=== PATIENT | female | born 1990 | race Caucasian/White ===

== ENCOUNTER → 2017-05-28 | Outpatient (CLI) | payer OTHER ==
[~2017-05-28] MED LIST: AMPH30TA2 PO; PRENTAB26 PO
== END | disposition home or self-care (01) ==
LOC: C.LAB 21:14
DX: Z02.83 Encounter for blood-alcohol and blood-drug test (principal)

== ENCOUNTER 2017-07-07 08:50 | Inpatient (IN) | payer OTHER ==
[~2017-07-07] VITALS: Ht 165.1 cm; Wt 77.4 kg
[~2017-07-07 08:50] MED LIST changes: -AMPH30TA2 PO
[2017-07-07] MEDS ORDERED: AMPH30TA2 PO ×2 (09:25)
[2017-07-07] MEDS ORDERED: ONDANSETRON INJ 2 MG/ML 2 ML VIAL IV STA (09:48)
[2017-07-07] MEDS ORDERED: SODIUM CHLORIDE 0.9% 1000ML 1,000 ML IV STA (09:48)
[2017-07-07] MEDS ORDERED: MoRPHine SULFATE 4 MG/ML 1 ML CARP\\VIAL IV STA (09:48)
[2017-07-07] MEDS ORDERED: OPTIRAY 320 IV PRN (10:00)
[2017-07-07 10:20] LABS: BASO % 0.1 %; BASO ABS # 0.02 K/uL (0-0.2); COMPLETE YES; EOS % 1.3 %; HEMATOCRIT 42.1 % (37-47); IG% 0.2 %; LYMPH % 10.7 %; LYMPH ABS # 1.52 K/uL (1.2-3.4); MEAN CELL VOLUME 97.2 fL (80-100); MEAN CORPUSCULAR HEMOGLOBIN 33.7 pg (25-34); MEAN CORPUSCULAR HGB CONC 34.7 g/dl (32-36); MEAN PLATELET VOLUME 11.5 fL (7.4-10.4); MONO % 11.9 %; NEUT % 75.8 %; PLATELET COUNT 224 K/uL (130-400); RED BLOOD COUNT 4.33 M/uL (4.2-5.4)
[2017-07-07 10:36] LABS: URINE APPEARANCE CLEAR (CLEAR); URINE BILIRUBIN NEG (NEG); URINE COLOR YELLOW; URINE NITRITE NEG (NEG); URINE PH 6.5 (4.5-7.5); URINE SPECIFIC GRAVITY 1.015 (1.000-1.030); UROBILINOGEN NEG (NEG)
[2017-07-07 10:37] LABS: MANUAL MICROSCOPIC REQUIRED? YES; REVIEW REQ? NO
[2017-07-07 10:44] LABS: BUN/CREATININE RATIO 12.1 (10-20); CALCIUM 9.4 mg/dl (8.5-10.1); CREATININE 0.75 mg/dl (0.60-1.20); POTASSIUM 3.4 mmol/L (3.5-5.1)
[2017-07-07 10:50] LABS: URINE BACTERIA NEG (NEG); URINE GRANULAR CAST 0-3 /lpf (0); URINE RBC 0-4 /hpf (0-4)
[2017-07-07 10:51] LABS: ALB/GLOB RATIO 0.9 (0.9-2)
--- NOTE | 2017-07-07 11:26 | DIAGNOSTIC IMAGING REPORT ---
CT SCAN OF THE ABDOMEN AND PELVIS WITH IV CONTRAST CLINICAL HISTORY: Mid abdominal pain. COMPARISON STUDY: Abdominal CT dated 09/03/2014. TECHNIQUE: Following the IV administration of 94 cc of Optiray 320, CT scan of the abdomen and pelvis is performed from the lung bases to the proximal femora. Images are reviewed in the axial, sagittal, and coronal planes. IV contrast was administered without complication. A dose lowering technique was utilized adhering to the principles of ALARA. CT DOSE: 442.42 mGy.cm FINDINGS: Lung bases: The heart is normal in size and without pericardial effusion. The lung bases are clear. Liver: The contrast-enhanced liver is enlarged, measuring 19.7 cm in length. The liver demonstrates diffusely diminished attenuation consistent with severe hepatic steatosis. Fatty sparing is noted adjacent to gallbladder fossa. There is no intrahepatic biliary ductal dilatation. The hepatic veins and portal veins are patent. Gallbladder: Unremarkable. Spleen: Normal in size and attenuation. Pancreas: Unremarkable. Adrenal glands: Unremarkable. Kidneys: The contrast enhanced kidneys are normal in size and without hydronephrosis. The kidneys enhance symmetrically. A subcentimeter cortical hypodensity in the right lower pole likely represents a cyst but is too small for definitive characterization. Abdominal vasculature: The abdominal aorta is normal in course and caliber. Bowel: The small bowel and colon are normal in course and caliber. The appendix is distended measuring 13 mm in diameter. The appendiceal wall is thickened and hyperemic and there is periappendiceal inflammatory stranding. Findings are consistent with acute appendicitis. Focal discontinuity of the appendiceal wall is suggested on image #329. Perforation is not excluded. Phlegmonous change is identified with no organized fluid collection seen to suggest abscess. Peritoneum: There is no intraperitoneal free air or abdominal ascites. There is a small fat-containing umbilical hernia. Lymphadenopathy: None. Pelvic viscera: The bladder, uterus, and adnexa are normal as visualized. There are small ovarian follicles. A small volume of free fluid is seen in the cul-de-sac. Skeletal structures: No lytic or blastic lesions are seen. IMPRESSION: 1. Findings are consistent with acute appendicitis with suspected perforation. No intraperitoneal free air is seen. Phlegmonous change is identified in the right lower quadrant with no organized fluid collection seen to indicate abscess. 2. Hepatomegaly and severe hepatic steatosis. 3. A small volume of free fluid in the cul-de-sac is nonspecific and may be within physiologic limits. Electronically signed by: Goyo Clay M.D. 07/07/2017 11:25 AM Dictated Date/Time: 07/07/2017 11:20 AM
[2017-07-07] MEDS ORDERED: PIPERACILLIN/TAZOBACTAM 4.5 GM/100ML D5W IV STA (11:44)
--- NOTE | 2017-07-07 12:22 | EMERGENCY ROOM VISIT NOTE ---
History First contact with patient: 09:16 Chief Complaint: ABDOMINAL PAIN Stated Complaint: BAD STOMACH AND BACK PAIN Nursing Triage Summary: mid back pain that radiates into abdomen. urinary frequency and pain History of Present Illness Patient is a 26-year-old white female who presents to the emergency department for evaluation of abdominal pain 2 days. She describes pain in the bilateral upper abdomen, underneath her ribs that radiates down towards her hips. She states the pain has been constant for the last 2 days. It was significantly worse overnight. She reports vomiting 2 days ago at the onset of the pain, but has not had any further vomiting since. She notes some suprapubic pressure and pain with urination, but denies dysuria. She states the pain radiated through to her back on occasion. She subjectively felt feverish and had the chills. She does admit to anorexia. She has been taking ibuprofen and tolerating oral fluids. She states at its worse, last night she would've rated her pain "15 out of 10," presently she rates it a 9/10. She denies any changes in her bowel habits. No vaginal bleeding or discharge. Her periods are irregular, as she previously had been receiving Depo-Provera injections. Last sexual activity was 2 weeks ago. Review of Systems Review of systems as per HPI. All other systems reviewed were negative. 10 systems reviewed. Past Medical/Surgical History Medical Problems: (1) Acute appendicitis (2) Hx of section (3) Intrauterine (4) No Known Active Medical Problems (5) Normal labor (6) Previous section Electronic medical records are reviewed and summarized as above/below. See Problem List. Social History Smoking Status: Current Every Day Smoker Alcohol Use: occasionally Housing Status: lives with family Occupation Status: employed Current/Historical Medications Scheduled Amphetamine-Dextroamphetamine 30MG (Adderall 30MG), 30 MG PO QAM Amphetamine-Dextroamphetamine 30MG (Adderall 30MG), 15 MG PO QPM Physical Exam Vital Signs Date Time Temp Pulse Resp B/P (MAP) Pulse Ox O2 Delivery O2 Flow Rate FiO2 07/07/17 12:33 97 Room Air 07/07/17 11:58 99 18 115/67 97 Room Air 07/07/17 10:22 106/76 07/07/17 08:59 36.7 100 18 112/78 98 Room Air Physical Exam CONSTITUTIONAL: Patient is a pleasant, well-appearing 26-year-old white female who is awake and alert and sitting upright on the gurney in no acute distress. Vital signs are stable. She is afebrile. HEENT: Normocephalic, atraumatic. Pupils equal, round, reactive to light and accommodation. EOMs intact without nystagmus. Sclera are anicteric. Tympanic membranes intact, with normal landmarks. External canals are clear. Oral and nasopharynx are clear. Mucous membranes are moist. NECK: Supple without lymphadenopathy. No thyromegaly. No meningeal signs. Full active range of motion without discomfort. CARDIOVASCULAR: Regular rate and rhythm, with normal S1 and S2, no murmur or gallop or rub is heard. No carotid bruits auscultated. No JVD. Peripheral pulses easily palpable. RESPIRATORY: Breath sounds equal and clear to auscultation without wheezes, rales, or rhonchi heard. Full and equal chest expansion without accessory muscle use or retractions. ABDOMEN: Bowel sounds are present. Abdomen is soft, nondistended, mildly tender to percussion in the epigastric, right upper quadrant and right lower quadrant. She has tenderness to palpation with voluntary guarding in the right lower quadrant. No rigidity. No CVA tenderness. INTEGUMENTARY: No lesions or rash, normal skin turgor. LYMPH: No lymphadenopathy. Medical Decision & Procedures ER Provider Diagnostic Interpretation: CT SCAN OF THE ABDOMEN AND PELVIS WITH IV CONTRAST CLINICAL HISTORY: Mid abdominal pain. COMPARISON STUDY: Abdominal CT dated 09/03/2014. TECHNIQUE: Following the IV administration of 94 cc of Optiray 320, CT scan of the abdomen and pelvis is performed from the lung bases to the proximal femora. Images are reviewed in the axial, sagittal, and coronal planes. IV contrast was administered without complication. A dose lowering technique was utilized adhering to the principles of ALARA. CT DOSE: 442.42 mGy.cm FINDINGS: Lung bases: The heart is normal in size and without pericardial effusion. The lung bases are clear. Liver: The contrast-enhanced liver is enlarged, measuring 19.7 cm in length. The liver demonstrates diffusely diminished attenuation consistent with severe hepatic steatosis. Fatty sparing is noted adjacent to gallbladder fossa. There is no intrahepatic biliary ductal dilatation. The hepatic veins and portal veins are patent. Gallbladder: Unremarkable. Spleen: Normal in size and attenuation. Pancreas: Unremarkable. Adrenal glands: Unremarkable. Kidneys: The contrast enhanced kidneys are normal in size and without hydronephrosis. The kidneys enhance symmetrically. A subcentimeter cortical hypodensity in the right lower pole likely represents a cyst but is too small for definitive characterization. Abdominal vasculature: The abdominal aorta is normal in course and caliber. Bowel: The small bowel and colon are normal in course and caliber. The appendix is distended measuring 13 mm in diameter. The appendiceal wall is thickened and hyperemic and there is periappendiceal inflammatory stranding. Findings are consistent with acute appendicitis. Focal discontinuity of the appendiceal wall is suggested on image #329. Perforation is not excluded. Phlegmonous change is identified with no organized fluid collection seen to suggest abscess. Peritoneum: There is no intraperitoneal free air or abdominal ascites. There is a small fat-containing umbilical hernia. Lymphadenopathy: None. Pelvic viscera: The bladder, uterus, and adnexa are normal as visualized. There are small ovarian follicles. A small volume of free fluid is seen in the cul-de-sac. Skeletal structures: No lytic or blastic lesions are seen. IMPRESSION: 1. Findings are consistent with acute appendicitis with suspected perforation. No intraperitoneal free air is seen. Phlegmonous change is identified in the right lower quadrant with no organized fluid collection seen to indicate abscess. 2. Hepatomegaly and severe hepatic steatosis. 3. A small volume of free fluid in the cul-de-sac is nonspecific and may be within physiologic limits. Laboratory Results 07/07/17 10:05 Red Blood Count 4.33, Mean Corpuscular Volume 97.2, Mean Corpuscular Hemoglobin 33.7, Mean Corpuscular Hemoglobin Concent 34.7, Mean Platelet Volume 11.5, Neutrophils (%) (Auto) 75.8, Lymphocytes (%) (Auto) 10.7, Monocytes (%) (Auto) 11.9, Eosinophils (%) (Auto) 1.3, Basophils (%) (Auto) 0.1, Neutrophils # (Auto ) 10.75, Lymphocytes # (Auto) 1.52, Monocytes # (Auto) 1.69, Eosinophils # (Auto ) 0.19, Basophils # (Auto) 0.02 07/07/17 10:05 Test 07/07/17 09:45 07/07/17 10:05 Urine Color YELLOW Urine Appearance CLEAR (CLEAR) Urine pH 6.5 (4.5-7.5) Urine Specific Crosby 1.015 (1.000-1.030) Urine Protein 1+ (NEG) Urine Glucose (UA) NEG (NEG) Urine Ketones TRACE (NEG) Urine Occult Blood 2+ (NEG) Urine Nitrite NEG (NEG) Urine Bilirubin NEG (NEG) Urine Urobilinogen NEG (NEG) Urine Leukocyte Esterase SMALL (NEG) Urine WBC (Auto) /hpf (0-5) Urine RBC (Auto) /hpf (0-4) Urine Hyaline Casts (Auto) /lpf (0-5) Urine Epithelial Cells (Auto) /lpf (0-5) Urine Bacteria (Auto) (NEG) Urine RBC 0-4 /hpf (0-4) Urine WBC 1-5 /hpf (0-5) Urine Epithelial Cells >30 /lpf (0-5) Urine Renal Epithelial Cells /lpf (0-5) Urine Bacteria NEG (NEG) Urine Hyaline Casts 1-5 /lpf (0-5) Urine Granular Casts 0-3 /lpf (0) Urine Test NEG (NEG) White Blood Count 14.20 K/uL (4.8-10.8) Red Blood Count 4.33 M/uL (4.2-5.4) Hemoglobin 14.6 g/dL (12.0-16.0) Hematocrit 42.1 % (37-47) Mean Corpuscular Volume 97.2 fL (80-100) Mean Corpuscular Hemoglobin 33.7 pg (25-34) Mean Corpuscular Hemoglobin Concent 34.7 g/dl (32-36) Platelet Count 224 K/uL (130-400) Mean Platelet Volume 11.5 fL (7.4-10.4) Neutrophils (%) (Auto) 75.8 % Lymphocytes (%) (Auto) 10.7 % Monocytes (%) (Auto) 11.9 % Eosinophils (%) (Auto) 1.3 % Basophils (%) (Auto) 0.1 % Neutrophils # (Auto) 10.75 K/uL (1.4-6.5) Lymphocytes # (Auto) 1.52 K/uL (1.2-3.4) Monocytes # (Auto) 1.69 K/uL (0.11-0.59) Eosinophils # (Auto) 0.19 K/uL (0-0.5) Basophils # (Auto) 0.02 K/uL (0-0.2) RDW Standard Deviation 44.4 fL (36.4-46.3) RDW Coefficient of Variation 12.4 % (11.5-14.5) Immature Granulocyte % (Auto) 0.2 % Immature Granulocyte # (Auto) 0.03 K/uL (0.00-0.02) Anion Gap 8.0 mmol/L (3-11) Est Creatinine Clear Calc Drug Dose 115.9 ml/min Estimated GFR () 126.6 Estimated GFR (Non- 109.2 BUN/Creatinine Ratio 12.1 (10-20) Calcium Level 9.4 mg/dl (8.5-10.1) Total Bilirubin 0.9 mg/dl (0.2-1) Aspartate Amino Transf (AST/SGOT) 15 U/L (15-37) Alanine Aminotransferase (ALT/SGPT) 52 U/L (12-78) Alkaline Phosphatase 61 U/L (45-117) Total Protein 8.4 gm/dl (6.4-8.2) Albumin 3.9 gm/dl (3.4-5.0) Globulin 4.5 gm/dl (2.5-4.0) Albumin/Globulin Ratio 0.9 (0.9-2) Lipase 124 U/L (73-393) Medications Administered Medications (Trade) Dose Ordered Sig/Lavelle Route Start Time Stop Time Status Last Admin Dose Admin Morphine Sulfate (MoRPHine SULFATE INJ) 4 mg NOW STAT IV 07/07/17 09:48 07/07/17 09:50 DC 07/07/17 10:16 4 MG Ondansetron HCl (Zofran Inj) 4 mg NOW STAT IV 07/07/17 09:48 07/07/17 09:50 DC 07/07/17 10:16 4 MG Sodium Chloride 1,000 ml @ 250 mls/hr Q4H STAT IV 07/07/17 09:48 07/07/17 13:47 07/07/17 10:16 250 MLS/HR Piperacillin Sod/ Tazobactam Sod (Zosyn Iv) 4.5 gm NOW STAT IV 07/07/17 11:44 07/07/17 11:45 DC 07/07/17 12:03 4.5 GM ED Course The patient was seen and examined as above. Her old records were reviewed. IV lock was initiated and she was hydrated with normal saline solution. The case with differential, CMP and lipase were drawn. Urinalysis was performed. Urine hCG was negative. Patient was medicated with morphine 4 mg and Zofran 4 mg IV. Given her diffuse abdominal pain, particularly in the right lower quadrant, CT scan of the abdomen and pelvis with IV contrast was ordered. Laboratory studies noted a white count of 14,200, with left shift and early bandemia. H&H is normal. Electrolytes are without gross abnormality which require correction. Renal functions are normal. LFTs are not elevated. Lipase is not indicative of acute pancreatitis. Urine microscopy was essentially benign. 2+ occult blood but no RBCs and a small amount of leuk esterase, but no wbc's, no nitrates or bacteria. CT scan noted findings concerning for acute appendicitis with suspected perforation, although no abscess is appreciated. There was no intraperitoneal free air. Hepatomegaly and severe hepatic steatosis was noted. Nonspecific free fluid in the pelvic cul-de-sac. Laboratory and diagnostic imaging studies were discussed with attending physician, and reviewed with the patient at length.. General surgery was contacted, and the patient was reviewed and seen by Camila Reid PA-C. Plan will be to take her to the OR later today. She was given Zosyn 4.5 g IV in the emergency department after discussion with general surgery. Differential diagnoses entertained included UTI, pyelonephritis, renal colic, , ectopic , ovarian cyst, ovarian torsion, PID, tubo-ovarian abscess, appendicitis, bowel obstruction, perforation, acute cholecystitis, cholelithiasis, among others. The patient remained hemodynamically stable in the emergency department, and was comfortable. Medical Decision See emergency Department course. Medication Reconcilliation Current Medication List: was personally reviewed by [place] Blood Pressure Screening Patient's blood pressure: Normal blood pressure Blood pressure disposition: Did not require urgent referral Impression Primary Impression: Acute appendicitis Departure Information Dispostion Being Evaluated By Surgeon Referrals Terrell Burton M.D. (PCP) Patient Instructions My [facility]
[2017-07-07] MEDS ORDERED: MoRPHine SULFATE 2 MG/ML CARP IV PRN (12:30)
[2017-07-07] MEDS ORDERED: ONDANSETRON INJ 2 MG/ML 2 ML VIAL IV PRN ×2 (12:30→17:00)
[2017-07-07 12:33] VITALS: O2SAT 97; Ht 165.1 cm; Wt 77.4 kg
[2017-07-07 12:35] LABS: PREG INTERNAL NEGATIVE QC NEG CLEAR BACKGROUND; PREG INTERNAL POSITIVE QC POS CONTROL LINE
[2017-07-07] MEDS ORDERED: PIPERACILL/TAZOBAC IV 3.375 GM in DEXTROSE 5% 100ML 100 ML IV SCH (14:00)
[2017-07-07] MEDS ORDERED: PIPERACILL/TAZOBAC CONSULT ACTIVE PRN (14:00)
--- NOTE | 2017-07-07 14:16 | History and Physical ---
History & Physical Date & Time of Service: Jul 07, 2017 at 14:04 Chief Complaint: Bad Stomach And Back Pain Primary Care Physician: Terrell Burton M.D. History of Present Illness Source: patient Deirdre is a 26 year-old female who presented to emergency department today with complaint of abdominal pain x 2 days. States the abdominal pain began in the upper abdomen on Wednesday morning. She describes the pain as intense, more severe than labor pain. Generalized, sharp, stabbing pain that increased in severity as the days went on. States she was going to come to emergency room last evening but felt slightly better and decided not to. Has had some associated nausea and vomiting. Denies fever. Had some chills and sweats off and on with the pain. Denies of any changes in her bowel movements, diarrhea, constipation, or blood in stools. Never had this type of pain before. No significant past medical history other than some ADHD and takes Adderral at home. No other medications. She is a current every day smoker about 1/2-3/4 ppd , smoking for last 5-10 years. WBC was elevated at 14K CT of abdomen and pelvis showed dilated appendix measuring 13 mm in diameter with periappendiceal fat stranding, inflammation, and possible perforation with no free air or abscess formation. Past Medical/Surgical History Past Medical History: 1. ADHD Past Surgical History: [place] teeth section Right foot surgery Social History Smoking Status: Current Every Day Smoker Occupational Status: employed Immunizations History of Influenza Vaccine: Yes Influenza Vaccine Date: May 24, 2009 History of Tetanus Vaccine?: utd Tetanus Immunization Date: Jul 29, 2007 History of Pneumococcal: Yes Pneumococcal Date: Jul 29, 2003 History of Hepatitis B Vaccine: Yes Hepatitis Immunization Date: Jul 29, 1997 Multi-Drug Resistant Organisms History of MDRO: No Allergies Coded Allergies: Lactose (Verified Allergy, Intermediate, N/V/D, 07/07/17) Atomoxetine (Verified Adverse Reaction, Mild, IRRITABLE, 07/07/17) Home Medications Scheduled Amphetamine-Dextroamphetamine 30MG (Adderall 30MG), 30 MG PO QAM Amphetamine-Dextroamphetamine 30MG (Adderall 30MG), 15 MG PO QPM Review of Systems Constitutional: + chills, + sweats, No fever Respiratory: No shortness of breath, No dyspnea at rest Cardiovascular: No chest pain Abdomen: + pain, + nausea, + vomiting, No diarrhea, No constipation, No GI bleeding Genitourinary - Female: No dysuria Integumentary: No rash Physical Exam Vital Signs Date Time Temp Pulse Resp B/P (MAP) Pulse Ox O2 Delivery O2 Flow Rate FiO2 07/07/17 12:33 97 Room Air 07/07/17 11:58 99 18 115/67 97 Room Air 07/07/17 10:22 106/76 07/07/17 08:59 36.7 100 18 112/78 98 Room Air General Appearance: WD/WN, no apparent distress Head: normocephalic, atraumatic Eyes: sclerae normal ENT: hearing grossly normal Neck: trachea midline Respiratory/Chest: lungs clear, normal breath sounds, no respiratory distress, no accessory muscle use Cardiovascular: regular rate, rhythm, no murmur Abdomen/GI: soft, no organomegaly, no pulsatile mass, + tenderness (In the RLQ , positive McBurney's, voluntary and involuntary guarding, no peritonitis) Back: normal inspection Extremities/Musculoskelatal: no pedal edema Neurologic/Psych: alert, normal mood/affect, oriented x 3 Skin: normal color, warm/dry, no rash Diagnostics Laboratory Results Results Past 24 Hours Test 07/07/17 09:45 07/07/17 10:05 Range/Units Urine Color YELLOW Urine Appearance CLEAR CLEAR Urine pH 6.5 4.5-7.5 Urine Specific [place] 1.015 1.000-1.030 Urine Protein 1+ NEG Urine Glucose (UA) NEG NEG Urine Ketones TRACE NEG Urine Occult Blood 2+ NEG Urine Nitrite NEG NEG Urine Bilirubin NEG NEG Urine Urobilinogen NEG NEG Urine Leukocyte Esterase SMALL NEG Urine WBC (Auto) 0-5 /hpf Urine RBC (Auto) 0-4 /hpf Urine Hyaline Casts (Auto) 0-5 /lpf Urine Epithelial Cells (Auto) 0-5 /lpf Urine Bacteria (Auto) NEG Urine RBC 0-4 0-4 /hpf Urine WBC 1-5 0-5 /hpf Urine Epithelial Cells >30 0-5 /lpf Urine Renal Epithelial Cells 0-5 /lpf Urine Bacteria NEG NEG Urine Hyaline Casts 1-5 0-5 /lpf Urine Granular Casts 0-3 0 /lpf Urine Test NEG NEG White Blood Count 14.20 4.8-10.8 K/uL Red Blood Count 4.33 4.2-5.4 M/uL Hemoglobin 14.6 12.0-16.0 g/dL Hematocrit 42.1 37-47 % Mean Corpuscular Volume 97.2 80-100 fL Mean Corpuscular Hemoglobin 33.7 25-34 pg Mean Corpuscular Hemoglobin Concent 34.7 32-36 g/dl Platelet Count 224 130-400 K/uL Mean Platelet Volume 11.5 7.4-10.4 fL Neutrophils (%) (Auto) 75.8 % Lymphocytes (%) (Auto) 10.7 % Monocytes (%) (Auto) 11.9 % Eosinophils (%) (Auto) 1.3 % Basophils (%) (Auto) 0.1 % Neutrophils # (Auto) 10.75 1.4-6.5 K/uL Lymphocytes # (Auto) 1.52 1.2-3.4 K/uL Monocytes # (Auto) 1.69 0.11-0.59 K/uL Eosinophils # (Auto) 0.19 0-0.5 K/uL Basophils # (Auto) 0.02 0-0.2 K/uL RDW Standard Deviation 44.4 36.4-46.3 fL RDW Coefficient of Variation 12.4 11.5-14.5 % Immature Granulocyte % (Auto) 0.2 % Immature Granulocyte # (Auto) 0.03 0.00-0.02 K/uL Sodium Level 134 136-145 mmol/L Potassium Level 3.4 3.5-5.1 mmol/L Chloride Level 100 98-107 mmol/L Carbon Dioxide Level 26 21-32 mmol/L Anion Gap 8.0 3-11 mmol/L Blood Urea Nitrogen 9 7-18 mg/dl Creatinine 0.75 0.60-1.20 mg/dl Est Creatinine Clear Calc Drug Dose 115.9 ml/min Estimated GFR () 126.6 Estimated GFR (Non- 109.2 BUN/Creatinine Ratio 12.1 10-20 Random Glucose 87 70-99 mg/dl Calcium Level 9.4 8.5-10.1 mg/dl Total Bilirubin 0.9 0.2-1 mg/dl Aspartate Amino Transf (AST/SGOT) 15 15-37 U/L Alanine Aminotransferase (ALT/SGPT) 52 12-78 U/L Alkaline Phosphatase 61 45-117 U/L Total Protein 8.4 6.4-8.2 gm/dl Albumin 3.9 3.4-5.0 gm/dl Globulin 4.5 2.5-4.0 gm/dl Albumin/Globulin Ratio 0.9 0.9-2 Lipase 124 73-393 U/L Diagnostic Radiology CT SCAN OF THE ABDOMEN AND PELVIS WITH IV CONTRAST CLINICAL HISTORY: Mid abdominal pain. COMPARISON STUDY: Abdominal CT dated 09/03/2014. TECHNIQUE: Following the IV administration of 94 cc of Optiray 320, CT scan of the abdomen and pelvis is performed from the lung bases to the proximal femora. Images are reviewed in the axial, sagittal, and coronal planes. IV contrast was administered without complication. A dose lowering technique was utilized adhering to the principles of ALARA. CT DOSE: 442.42 mGy.cm FINDINGS: Lung bases: The heart is normal in size and without pericardial effusion. The lung bases are clear. Liver: The contrast-enhanced liver is enlarged, measuring 19.7 cm in length. The liver demonstrates diffusely diminished attenuation consistent with severe hepatic steatosis. Fatty sparing is noted adjacent to gallbladder fossa. There is no intrahepatic biliary ductal dilatation. The hepatic veins and portal veins are patent. Gallbladder: Unremarkable. Spleen: Normal in size and attenuation. Pancreas: Unremarkable. Adrenal glands: Unremarkable. Kidneys: The contrast enhanced kidneys are normal in size and without hydronephrosis. The kidneys enhance symmetrically. A subcentimeter cortical hypodensity in the right lower pole likely represents a cyst but is too small for definitive characterization. Abdominal vasculature: The abdominal aorta is normal in course and caliber. Bowel: The small bowel and colon are normal in course and caliber. The appendix is distended measuring 13 mm in diameter. The appendiceal wall is thickened and hyperemic and there is periappendiceal inflammatory stranding. Findings are consistent with acute appendicitis. Focal discontinuity of the appendiceal wall is suggested on image #[id number]. Perforation is not excluded. Phlegmonous change is identified with no organized fluid collection seen to suggest abscess. Peritoneum: There is no intraperitoneal free air or abdominal ascites. There is a small fat-containing umbilical hernia. Lymphadenopathy: None. Pelvic viscera: The bladder, uterus, and adnexa are normal as visualized. There are small ovarian follicles. A small volume of free fluid is seen in the cul-de-sac. Skeletal structures: No lytic or blastic lesions are seen. IMPRESSION: 1. Findings are consistent with acute appendicitis with suspected perforation. No intraperitoneal free air is seen. Phlegmonous change is identified in the right lower quadrant with no organized fluid collection seen to indicate abscess. 2. Hepatomegaly and severe hepatic steatosis. 3. A small volume of free fluid in the cul-de-sac is nonspecific and may be within physiologic limits. Impression Assessment and Plan Acute Appendicitis with possible perforation - leukocytosis of 14k - CT scan showing dilated appendix at 13 mm with periappendiceal inflammation and fat stranding. Concern for discontinuity for perforation. No abscess formation Plan: Plan for laparoscopic possible open appendectomy. Informed patient of procedure and risks, informed consent will be obtained by Dr. Watkins. She had something to eat at 10:30 therefore surgery will be delayed until this evening. She will be admitted to Med/Surg floor in the meantime with IV fluids, IV Zosyn, IV Morphine, and IV Zofran. Discussed patient with Dr. Watkins who agrees with above. Advanced Directives Existing Living Will: No Existing Power of Pop Singer: No VTE Prophylaxis VTE Risk Assessment Done? Y/N: Yes Risk Level: Low Note I interviewed and examined this patient and reviewed her labs and radiology study and I agree with the above note. All is consistent with acute, possible ruptured appendicitis. i explained the procedure and the possible complications and answered her questions. She hsa signed a consent form
[2017-07-07] MEDS: MoRPHine SULFATE 2 MG/ML CARP IV PRN (14:52)
[2017-07-07] MEDS: LACTATED RINGER'S 1000ML 1,000 ML IV SCH (15:43)
[2017-07-07] MEDS ORDERED: NEOSTIGMINE METHYLSULFATE 5 MG/5 ML SYR ONE (16:02)
[2017-07-07] MEDS ORDERED: LIDOCAINE HCL 2% 2 ML VIAL (20MG/ML) ONE (16:02)
[2017-07-07] MEDS ORDERED: ONDANSETRON INJ 2 MG/ML 2 ML VIAL ONE ×2 (16:02→17:52)
[2017-07-07] MEDS ORDERED: DEXAMETHASONE SOD INJ 4 MG/ML VIAL ONE (16:02)
[2017-07-07] MEDS ORDERED: GLYCOPYRROLATE INJ 0.2 MG/ML VIAL ONE (16:02)
[2017-07-07] MEDS ORDERED: PROPOFOL IV EMULSION 10 MG/ML 20 ML VIAL IV ONE (16:03)
[2017-07-07] MEDS ORDERED: FENTANYL CITRATE INJ 50 MCG/1 ML 2 ML VIAL ONE ×2 (16:03→17:42)
[2017-07-07] MEDS ORDERED: MIDAZOLAM HCL 1 MG/ML 2ML VIAL ONE (16:03)
[2017-07-07] MEDS ORDERED: BUPIVACAINE 0.5 % 5 MG/1 ML MPF 30ML VIAL ONE (16:29)
[2017-07-07] MEDS ORDERED: HEPARIN SOD (PORCINE) 1000 UNIT/ML 10 ML VIAL ONE (16:29)
[2017-07-07] MEDS ORDERED: CEFAZOLIN SOD 1 GM VIAL ONE (16:29)
--- NOTE | 2017-07-07 16:32 | Anesthesiology Progress Note ---
Anesthesia Post Op Note Date & Time Jul 07, 2017 at 16:32 Vital Signs Pain Intensity: 7.0 Vital Signs Past 12 Hours Date Time Temp Pulse Resp B/P (MAP) Pulse Ox O2 Delivery O2 Flow Rate FiO2 07/07/17 15:59 36.9 88 16 120/61 (80) 96 Room Air 07/07/17 14:13 88 18 116/62 98 Room Air 07/07/17 12:33 97 Room Air 07/07/17 11:58 99 18 115/67 97 Room Air 07/07/17 10:22 106/76 07/07/17 08:59 36.7 100 18 112/78 98 Room Air Notes Mental Status: alert / awake / arousable, participated in evaluation Pt Amnestic to Procedure: Yes Nausea / Vomiting: adequately controlled Pain: adequately controlled Airway Patency, RR, SpO2: stable & adequate BP & HR: stable & adequate Hydration State: stable & adequate Anesthetic Complications: no major complications apparent
[2017-07-07] MEDS ORDERED: PROMETHAZINE HCL INJ 12.5 MG in SODIUM CHLORIDE 0.9% 50ML 50 ML IV PRN (17:00)
[2017-07-07] MEDS ORDERED: EpHEDrine SULFATE INJ 50 MG/ML AMP IV PRN (17:00)
[2017-07-07] MEDS ORDERED: ATROPINE SULFATE 0.1 MG/ML 5ML SYR IV PRN (17:00)
[2017-07-07] MEDS ORDERED: METOCLOPRAMIDE HCL INJ 5 MG/ML 2 ML VIAL IV PRN (17:00)
[2017-07-07] MEDS ORDERED: HYDROmorphone INJ 1 MG/ML SYR IV PRN (17:00)
[2017-07-07] MEDS ORDERED: LARYING-O-JET KIT (LTA) ONE ×2 (17:06)
[2017-07-07] MEDS ORDERED: PHENYLEPHRINE HCL INJ 10 MG/ML VIAL ONE (17:06)
[2017-07-07] MEDS ORDERED: SUCCINYLCHOLINE CHLORIDE 20 MG/ML 10 ML VIAL IV ONE (17:53)
[2017-07-07] MEDS ORDERED: ROCURONIUM BROMIDE 10 MG/ML 5 ML VIAL IV ONE (17:53)
[2017-07-07] MEDS ORDERED: KETOROLAC TROMETHAMINE 30 MG/ML VIAL ONE (18:04)
--- NOTE | 2017-07-07 18:23 | [facility] Post Operative Brief Note ---
Immediate Operative Summary Operative Date Jul 07, 2017. Pre-Operative Diagnosis Acute appendicitis possible perforation Post-Operative Diagnosis gangreous appendicitis and abdominal adhesions Procedure(s) Performed Laparoscopic appendectomy , Lysis of adhesions Surgeon Dr Watkins Optical Worker Surgeon(s) Camila Pereira PA-C Estimated Blood Loss 15ml Findings See dictation Specimens C and S Peritoneal fluid sent to lab at 1724 a. appendix Drains One J-P along the righ tparacolic gutter and into the pelvis Anesthesia General Complication(s) None Disposition Recovery Room / PACU
[2017-07-07] MEDS ORDERED: MoRPHine SULFATE 4 MG/ML 1 ML CARP\\VIAL IV PRN (18:30)
--- NOTE | 2017-07-07 18:34 | [facility] Operative Report ---
Operative Report Operative Date Jul 07, 2017. Pre-Operative Diagnosis Acute appendicitis possible perforation Post-Operative Diagnosis gangreous appendicitis and abdominal adhesions Procedure(s) Performed Laparoscopic appendectomy , Lysis of adhesions Surgeon Joesph Watkins MD Junior Technical Writer Surgeon(s) Camila Pereira PA-C Estimated Blood Loss 15ml Findings There was turbid fluid within the right lower quadrant and within the pelvis. This was sent for culture. The appendix was gangrenous with the exception of very paced. That appeared normal. The cecum appeared normal as well especially at the base. There did not appear to be gross evidence of perforation of the appendix. There was hyperemia of the small bowel in the area. The fallopian tube and the ovary were adherent to the gangrenous appendix. There were adhesions to the anterior abdominal wall. The adhesions were of the omentum presumably from her previous . There was no small bowel adhered to the anterior abdominal wall. Specimens C and S Peritoneal fluid sent to lab at 1724 a. appendix Drains One J-P along the righ tparacolic gutter and into the pelvis Anesthesia General Complication(s) None Disposition Recovery Room / PACU Description of Procedure The patient was placed on the operating table given a general anesthetic and the area was prepped and draped in usual sterile fashion. Transverse incision was made below the umbilicus carried out through the subcutaneous tissue to the fascia which was grasped with 2 curved clamps incised between. The peritoneum was identified incised and introduced was placed bluntly. The abdomen was then insufflated to a pressure of 15 mmHg carbon dioxide. The camera was passed through the adhesions to the anterior abdominal wall were identified. The left lower quadrant introducer was then placed under direct vision through small skin incisions. Through that introducer a sharp scissor was passed and the adhesions were taken down using sharp cautery and blunt dissection were appropriate until the entire anterior abdominal wall was free of adhesion. The lower midline introducer was then placed under direct vision through small skin incision. The small bowel was then retracted to the left and superiorly exposing the appendix which was adherent to the anteroinferior portion of the cecum and extending inferiorly towards the pelvis. It extended behind the broad ligament. It was adherent to the small bowel in that area as well as to the broad ligament the fallopian tube and the ovary but these adhesions and areas were taken down with blunt dissection easily. Allowed me then to elevate the appendix anteriorly. I was able then to establish a plane in the midportion of the mesial appendix and divide the most distal portion of the mesial appendix using the Endo BECCA stapler. That allowed me to further elevate the appendix and identify the base of the appendix. I was able to separate the mesoappendix from the base of the appendix and divide the remainder of the mesial appendix using the Endo BECCA stapler. There were some adhesion of some of the fat to the medial wall of the appendix as well as to the serosa of the cecum this was taken down. There was a small amount of bleeding from the liver was controlled with a clip. That allowed me then to amputate the appendix taking a cough of the cecum with it as there was some firm quality to the base of the appendix and the cecum just at the base. There was serosal surface at the entire edge of the staple line. The appendix placed into the Endobag and brought to the left lower quadrant introducer site. That introducer was replaced and the right lower quadrant pelvis and right upper quadrant were irrigated and irrigation all those areas was removed. The areas of dissection as well as the staple lines were inspected there was no bleeding. A separate stab incision was made in the right lower quadrant through which a 10 mm Pankaj -Ivory was brought. It had been cut to size prior to replacing into the abdomen was placed along the right pericolic gutter near the cecum and into the pelvis. It was secured at the skin with nylon. The gas was allowed to escape and the introducers were removed. The fascia of the umbilical introducer site was closed with interrupted 0 Vicryl and the skin of all the incisions was closed with 4-0 Monocryl in either interrupted or running subcuticular fashion. The skin was anesthetized with 0.5% Marcaine. The skin was cleansed dry benzoin placed Steri-Strips applied. Estimated blood loss was 15 mL. Sponge needle and instrument counts were correct prior to closure. The patient tolerated surgical procedure without complication was transferred to recovery. I attest to the content of the Intraoperative Record and any orders documented therein. Any exceptions are noted below.
[2017-07-07] MEDS: FENTANYL CITRATE INJ 50 MCG/1 ML 2 ML VIAL IV PRN ×4 (18:40→18:57)
--- NOTE | 2017-07-07 19:09 | Anesthesiology Progress Note ---
Anesthesia Post Op Note Date & Time Jul 07, 2017 at 19:09 Vital Signs Pain Intensity: 3 Vital Signs Past 12 Hours Date Time Temp Pulse Resp B/P (MAP) Pulse Ox O2 Delivery O2 Flow Rate FiO2 07/07/17 19:00 72 16 128/47 100 Nasal Cannula 2 07/07/17 18:50 80 16 125/65 100 Nasal Cannula 2 07/07/17 18:40 78 16 118/65 100 Oxymask 10 07/07/17 18:30 36.2 76 16 122/59 100 Oxymask 10 07/07/17 15:59 36.9 88 16 120/61 (80) 96 Room Air 07/07/17 15:20 Room Air 07/07/17 14:13 88 18 116/62 98 Room Air 07/07/17 12:33 97 Room Air 07/07/17 11:58 99 18 115/67 97 Room Air 07/07/17 10:22 106/76 07/07/17 08:59 36.7 100 18 112/78 98 Room Air Notes Mental Status: alert / awake / arousable, participated in evaluation Pt Amnestic to Procedure: Yes Nausea / Vomiting: adequately controlled Pain: adequately controlled Airway Patency, RR, SpO2: stable & adequate BP & HR: stable & adequate Hydration State: stable & adequate Anesthetic Complications: no major complications apparent
[2017-07-07 19:15] VITALS: BP 124/78; PULSE 81; TEMP 36.7; O2SAT 95
[2017-07-07] MEDS: OXYCODONE/ACETAMINOPHEN 5-325 TAB PO PRN (19:31)
[2017-07-07 19:52] VITALS: BP 134/84; PULSE 76; TEMP 36.8; O2SAT 96
[2017-07-07] MEDS: PIPERACILL/TAZOBAC IV 3.375 GM in DEXTROSE 5% 100ML IV SCH (20:03)
[2017-07-07 20:25] VITALS: BP 119/75; PULSE 90; TEMP 36.6; O2SAT 95
[2017-07-07 21:12] VITALS: BP 111/66; PULSE 91; TEMP 36.9; O2SAT 96
[2017-07-07 22:45] VITALS: BP 95/53; PULSE 77; TEMP 36.8; O2SAT 94
[2017-07-07] MEDS: MoRPHine SULFATE 4 MG/ML 1 ML CARP\\VIAL IV PRN (23:45)
[2017-07-08] MEDS: LACTATED RINGER'S 1000ML 1,000 ML IV SCH ×3 (00:17→20:31)
[2017-07-08] MEDS: PIPERACILL/TAZOBAC IV 3.375 GM in DEXTROSE 5% 100ML IV SCH ×3 (02:02→18:23)
[2017-07-08] MEDS: OXYCODONE/ACETAMINOPHEN 5-325 TAB PO PRN ×6 (02:04→22:36)
[2017-07-08 04:00] VITALS: BP 100/67; PULSE 70; TEMP 36.6; O2SAT 93
[2017-07-08] MEDS: MoRPHine SULFATE 4 MG/ML 1 ML CARP\\VIAL IV PRN ×5 (04:00→20:32)
[2017-07-08 07:02] VITALS: BP 97/57; PULSE 54; TEMP 36.5; O2SAT 97
--- NOTE | 2017-07-08 08:10 | Anesthesiology Progress Note ---
Anesthesia Post Op Note Date & Time Jul 08, 2017 at 08:09 Vital Signs Pain Intensity: 7.0 Vital Signs Past 12 Hours Date Time Temp Pulse Resp B/P (MAP) Pulse Ox O2 Delivery O2 Flow Rate FiO2 07/08/17 07:02 36.5 54 16 97/57 (70) 97 Room Air 07/08/17 04:00 36.6 70 16 100/67 (78) 93 Room Air 07/07/17 23:30 Room Air 07/07/17 22:45 36.8 77 16 95/53 (67) 94 Room Air 07/07/17 21:12 36.9 91 16 111/66 (81) 96 07/07/17 20:25 36.6 90 16 119/75 (90) 95 Room Air Notes Mental Status: alert / awake / arousable, participated in evaluation Pt Amnestic to Procedure: Yes Nausea / Vomiting: adequately controlled Pain: adequately controlled Airway Patency, RR, SpO2: stable & adequate BP & HR: stable & adequate Hydration State: stable & adequate Anesthetic Complications: no major complications apparent
[2017-07-08 08:54] LABS: HEMATOCRIT 36.4 % (37-47); MEAN CELL VOLUME 97.1 fL (80-100); MEAN CORPUSCULAR HEMOGLOBIN 33.6 pg (25-34); MEAN CORPUSCULAR HGB CONC 34.6 g/dl (32-36); MEAN PLATELET VOLUME 11.9 fL (7.4-10.4); PLATELET COUNT 215 K/uL (130-400); RED BLOOD COUNT 3.75 M/uL (4.2-5.4); WHITE BLOOD COUNT 12.26 K/uL (4.8-10.8)
[2017-07-08 09:16] LABS: BUN/CREATININE RATIO 10.9 (10-20); CALCIUM 9.4 mg/dl (8.5-10.1); CREATININE 0.55 mg/dl (0.60-1.20); POTASSIUM 3.9 mmol/L (3.5-5.1)
--- NOTE | 2017-07-08 09:48 | Surgery Progress Note ---
Surgery Progress Note Date of Service Jul 08, 2017. Subjective Post OP Day: 1 + pain controlled (percocet only working for 2 hours, not lasting as long. ), + diet (tolerating regular diet), No feeling well, No chest pain, No bowel movement, No flatus, No nausea, No vomiting Pain is now incisional pain, worse with movement Urinating without difficulty Objective Vital Signs: Date Time Temp Pulse Resp B/P (MAP) Pulse Ox O2 Delivery O2 Flow Rate FiO2 07/08/17 07:02 36.5 54 16 97/57 (70) 97 Room Air 07/08/17 04:00 36.6 70 16 100/67 (78) 93 Room Air 07/07/17 23:30 Room Air 07/07/17 22:45 36.8 77 16 95/53 (67) 94 Room Air 07/07/17 21:12 36.9 91 16 111/66 (81) 96 07/07/17 20:25 36.6 90 16 119/75 (90) 95 Room Air 07/07/17 19:52 36.8 76 16 134/84 (101) 96 Room Air 07/07/17 19:15 95 Nasal Cannula 2.0 07/07/17 19:15 36.7 81 16 124/78 (93) 95 Nasal Cannula 2.0 07/07/17 19:05 36.4 76 16 121/77 100 Nasal Cannula 2 07/07/17 19:00 72 16 128/47 100 Nasal Cannula 2 07/07/17 18:50 80 16 125/65 100 Nasal Cannula 2 07/07/17 18:40 78 16 118/65 100 Oxymask 10 07/07/17 18:30 36.2 76 16 122/59 100 Oxymask 10 07/07/17 15:59 36.9 88 16 120/61 (80) 96 Room Air 07/07/17 15:20 Room Air 07/07/17 14:13 88 18 116/62 98 Room Air 07/07/17 12:33 97 Room Air 07/07/17 11:58 99 18 115/67 97 Room Air 07/07/17 10:22 106/76 Physical Exam: NIKKIE drainage (serosanguineous) General Appearance: WD/WN, no apparent distress Head: normocephalic, atraumatic Neck: trachea midline Respiratory/Chest: no respiratory distress, no accessory muscle use Abdomen: non distended, soft, + tenderness (appropriate post op at incision sites, on peritonitis) Incision(s): clean, dry, intact, findings (steri strips present) Laboratory Results: Results Past 24 Hours Test 07/07/17 10:05 07/08/17 08:29 Range/Units White Blood Count 14.20 12.26 4.8-10.8 K/uL Red Blood Count 4.33 3.75 4.2-5.4 M/uL Hemoglobin 14.6 12.6 12.0-16.0 g/dL Hematocrit 42.1 36.4 37-47 % Mean Corpuscular Volume 97.2 97.1 80-100 fL Mean Corpuscular Hemoglobin 33.7 33.6 25-34 pg Mean Corpuscular Hemoglobin Concent 34.7 34.6 32-36 g/dl Platelet Count 224 215 130-400 K/uL Mean Platelet Volume 11.5 11.9 7.4-10.4 fL Neutrophils (%) (Auto) 75.8 % Lymphocytes (%) (Auto) 10.7 % Monocytes (%) (Auto) 11.9 % Eosinophils (%) (Auto) 1.3 % Basophils (%) (Auto) 0.1 % Neutrophils # (Auto) 10.75 1.4-6.5 K/uL Lymphocytes # (Auto) 1.52 1.2-3.4 K/uL Monocytes # (Auto) 1.69 0.11-0.59 K/uL Eosinophils # (Auto) 0.19 0-0.5 K/uL Basophils # (Auto) 0.02 0-0.2 K/uL RDW Standard Deviation 44.4 43.3 36.4-46.3 fL RDW Coefficient of Variation 12.4 12.2 11.5-14.5 % Immature Granulocyte % (Auto) 0.2 % Immature Granulocyte # (Auto) 0.03 0.00-0.02 K/uL Sodium Level 134 138 136-145 mmol/L Potassium Level 3.4 3.9 3.5-5.1 mmol/L Chloride Level 100 104 98-107 mmol/L Carbon Dioxide Level 26 28 21-32 mmol/L Anion Gap 8.0 6.0 3-11 mmol/L Blood Urea Nitrogen 9 6 7-18 mg/dl Creatinine 0.75 0.55 0.60-1.20 mg/dl Est Creatinine Clear Calc Drug Dose 115.9 158.0 ml/min Estimated GFR () 126.6 149.0 Estimated GFR (Non- 109.2 128.5 BUN/Creatinine Ratio 12.1 10.9 10-20 Random Glucose 87 94 70-99 mg/dl Calcium Level 9.4 9.4 8.5-10.1 mg/dl Total Bilirubin 0.9 0.2-1 mg/dl Aspartate Amino Transf (AST/SGOT) 15 15-37 U/L Alanine Aminotransferase (ALT/SGPT) 52 12-78 U/L Alkaline Phosphatase 61 45-117 U/L Total Protein 8.4 6.4-8.2 gm/dl Albumin 3.9 3.4-5.0 gm/dl Globulin 4.5 2.5-4.0 gm/dl Albumin/Globulin Ratio 0.9 0.9-2 Lipase 124 73-393 U/L Assessment & Plan POD # 1 s/p laparoscopic appendectomy- gangrenous appendicitis -vitals stable, afebrile - leukocytosis improving, 12.26 today - tolerating regular diet - abdominal pain moderate, incisional pain, controlled Plan: Continue PO Percocet and breakthrough Morphine IV prn pain Continue regular diet Continue IV Zosyn, await results of wound cultures repeat am cbc Continue IV fluids, decrease to 75 mls/hr Change to admission, will stay this evening, await on wound culture results and further need for IV antibiotics Dr. Watkins has seen and examined patient, agrees with above
[2017-07-08 11:29] VITALS: BP 108/65; PULSE 72; TEMP 36.6; O2SAT 99
--- NOTE | 2017-07-08 13:01 | Discharge Instructions ---
Discharge Instructions Date of Service Jul 08, 2017. Admission Reason for Admission: Acute Appendicitis Discharge Discharge Diagnosis / Problem: same Discharge Goals Goal(s): Decrease discomfort, Improve function Activity Recommendations Activity Limitations: as noted below No heavy lifting over 10 pounds for 2 weeks No strenuous activity until cleared by surgeon No submerging incisions underwater for 2 weeks (no swimming, bathing, or hot tubs) No driving while taking narcotic pain medication or until you are pain free whichever comes last . Instructions / Follow-Up Instructions / Follow-Up You May shower at home Leave steri strips on incisions for 7 days and then remove. The steri strips may fall off on their own that is okay. You do not need to keep a dressing on incisions unless they are draining. Walking and light activity is encouraged to prevent blood clots from forming Follow-up in surgical office in 2 weeks, please call [phone] to make an appointment You may take extra strength Tylenol or Ibuprofen based products as needed for pain however do not alternate Tylenol with Percocet as Percocet has Tylenol in it. Current Hospital Diet Patient's current hospital diet: Regular Diet Discharge Diet Recommended Diet: Regular Diet Procedures Procedures Performed: Laparoscopic appendectomy , Lysis of adhesions Pending Studies Studies pending at discharge: yes List of pending studies: Appendix pathology- will be reviewed at follow-up visit Medical Emergencies . Who to Call and When: Medical Emergencies: If at any time you feel your situation is an emergency, please call 911 immediately. . Non-Emergent Contact Non-Emergency issues call your: Primary Care Provider, Surgeon Call Non-Emergent contact if: you have a fever, temperature is above 101.5, your pain is not controlled, your pain is worsening, your pain is unusual for you, wound has increased drainage, wound has increased redness, wound has increased pain . "Provider Documentation" section prepared by Camila Reid. . VTE Core Measure Inpt VTE Proph given/why not?: SCD's [place] Drug Monitoring Program Search Results: patient reviewed within database, no issues identified
[2017-07-08 14:51] VITALS: BP 118/72; PULSE 76; TEMP 36.6; O2SAT 98
[2017-07-08 23:00] VITALS: O2SAT 98
[2017-07-08 23:27] VITALS: BP 115/70; PULSE 63; TEMP 36.6; O2SAT 98
[2017-07-09] MEDS: MoRPHine SULFATE 2 MG/ML CARP IV PRN ×3 (00:27→09:39)
[2017-07-09] MEDS: PIPERACILL/TAZOBAC IV 3.375 GM in DEXTROSE 5% 100ML IV SCH (02:04)
[2017-07-09] MEDS: OXYCODONE/ACETAMINOPHEN 5-325 TAB PO PRN ×2 (02:46→07:11)
[2017-07-09 07:02] VITALS: BP 125/82; PULSE 77; TEMP 36.7; O2SAT 99
--- NOTE | 2017-07-09 07:45 | Surgery Progress Note ---
Surgery Progress Note Date of Service Jul 09, 2017. Subjective Post OP Day: 2 + feeling well, + pain controlled, + diet (tolerated regular diet), No nausea, No vomiting Objective Vital Signs: Date Time Temp Pulse Resp B/P (MAP) Pulse Ox O2 Delivery O2 Flow Rate FiO2 07/09/17 07:02 36.7 77 16 125/82 (96) 99 Room Air 07/08/17 23:27 36.6 63 16 115/70 (85) 98 Room Air 07/08/17 23:00 98 Room Air 07/08/17 15:45 Room Air 07/08/17 14:51 36.6 76 16 118/72 (87) 98 Room Air 07/08/17 11:29 36.6 72 16 108/65 (79) 99 Room Air 07/08/17 08:00 Room Air 2.0 Abdomen: normal bowel sounds, non distended, + tenderness (Incisional only) Incision(s): clean, dry, intact, no erythema Laboratory Results: Results Past 24 Hours Test 07/08/17 08:29 07/09/17 04:44 Range/Units White Blood Count 12.26 4.8-10.8 K/uL Red Blood Count 3.75 4.2-5.4 M/uL Hemoglobin 12.6 12.0-16.0 g/dL Hematocrit 36.4 37-47 % Mean Corpuscular Volume 97.1 80-100 fL Mean Corpuscular Hemoglobin 33.6 25-34 pg Mean Corpuscular Hemoglobin Concent 34.6 32-36 g/dl RDW Standard Deviation 43.3 36.4-46.3 fL RDW Coefficient of Variation 12.2 11.5-14.5 % Platelet Count 215 130-400 K/uL Mean Platelet Volume 11.9 7.4-10.4 fL Sodium Level 138 136-145 mmol/L Potassium Level 3.9 3.5-5.1 mmol/L Chloride Level 104 98-107 mmol/L Carbon Dioxide Level 28 21-32 mmol/L Anion Gap 6.0 3-11 mmol/L Blood Urea Nitrogen 6 7-18 mg/dl Creatinine 0.55 0.60-1.20 mg/dl Est Creatinine Clear Calc Drug Dose 158.0 ml/min Estimated GFR () 149.0 Estimated GFR (Non- 128.5 BUN/Creatinine Ratio 10.9 10-20 Random Glucose 94 70-99 mg/dl Calcium Level 9.4 8.5-10.1 mg/dl Assessment & Plan S/P appendectomy Cultures negative Doing well Can D/C to home
[2017-07-09] MEDS: LACTATED RINGER'S 1000ML 1,000 ML IV SCH (09:40)
[2017-07-09 10:34] VITALS: BP 125/82; PULSE 77; TEMP 36.7; O2SAT 99
--- NOTE | 2017-07-09 12:01 | Discharge Summary ---
Discharge Summary Dates Admission Date / Time: Jul 08, 2017 at 09:17 Discharge Date: Jul 09, 2017 Dispostion / Condition Discharge Disposition: Home Condition at Discharge: Fair Principal Diagnosis (1) Acute appendicitis Problem List (1) ADHD Consultations / Procedures Consultations: None Procedures: Laparoscopic appendectomy with placement of surgical drain Pending Studies / Follow-Up Appendix pathology- will be reviewed at follow-up visit Medication Reconciliation Continued Medications: Amphetamine-Dextroamphetamine 30MG (Adderall 30MG) 1 Tab Tab 30 MG PO QAM, TAB Amphetamine-Dextroamphetamine 30MG (Adderall 30MG) 1 Tab Tab 15 MG PO QPM, TAB Admission HPI Per the Admitting provider: Deirdre is a 26 year-old female who presented to emergency department today with complaint of abdominal pain x 2 days. States the abdominal pain began in the upper abdomen on Wednesday morning. She describes the pain as intense, more severe than labor pain. Generalized, sharp, stabbing pain that increased in severity as the days went on. States she was going to come to emergency room last evening but felt slightly better and decided not to. Has had some associated nausea and vomiting. Denies fever. Had some chills and sweats off and on with the pain. Denies of any changes in her bowel movements, diarrhea, constipation, or blood in stools. Never had this type of pain before. No significant past medical history other than some ADHD and takes Adderral at home. No other medications. She is a current every day smoker about 1/2-3/4 ppd , smoking for last 5-10 years. WBC was elevated at 14K CT of abdomen and pelvis showed dilated appendix measuring 13 mm in diameter with periappendiceal fat stranding, inflammation, and possible perforation with no free air or abscess formation. Admission Exam Per the Admitting provider: General Appearance: WD/WN, no apparent distress Head: normocephalic, atraumatic Eyes: sclerae normal ENT: hearing grossly normal Neck: trachea midline Respiratory/Chest: lungs clear, normal breath sounds, no respiratory distress, no accessory muscle use Cardiovascular: regular rate, rhythm, no murmur Abdomen/GI: soft, no organomegaly, no pulsatile mass, + tenderness (In the RLQ, positive McBurney's, voluntary and involuntary guarding, no peritonitis) Back: normal inspection Extremities/Musculoskelatal: no pedal edema Neurologic/Psych: alert, normal mood/affect, oriented x 3 Skin: normal color, warm/dry, no rash Hospital Course (1) Acute appendicitis Patient was admitted to the medical/surgical floor from the emergency department as she had something to eat the am of admission. She was started on IV fluids, IV pain mediation in form of Morphine and IV Zofran and IV Zosyn for presumed perforated appendicitis. She was then taken to operating room for laparoscopic possible open appendectomy. She was found to have gangrenous appendicitis however no evidence of perforation. There was murky fluid in the pelvis which was sent for gram heydi, culture and sensitivity. She tolerated procedure well without any complications and was transferred to recovery and then medical/surgical floor in stable condition. Her diet was advanced to regular diet and pain medication was continued with addition of PO Percocet. NIKKIE drain was kept to bulb suction. POD # 1 she was doing well, tolerating regular diet, vitals stable, afebrile, pain controlled. culture still pending. Later in the day preliminary culture showed no growth. She was kept overnight for further IV antibiotics and then was discharged home on POD # 2 in stable condition. NIKKIE drain was removed prior to discharge. Discharge Instructions as given to patient Copies To Primary Care Provider: Terrell Burton M.D.. Problem Qualifiers (1) Acute appendicitis: Acute appendicitis type: with localized peritonitis Qualified Codes: K35.3 - Acute appendicitis with localized peritonitis
== END 2017-07-09 11:03 | disposition home or self-care (01) | DRG 340 ==
LOC: C.EDB 08:51 → C.MSW 12:30 → ENRESERV 14:08 → OBSVTOIN 07-08 09:17
PROVIDERS: ADMIT Surgery; ATTEND Surgery
PROC: 0DTJ4ZZ Resection of Appendix, Percutaneous Endoscopic Approach (ICD-10-PCS; principal; 2017-07-07 07:15)
DX: K35.3 Acute appendicitis with localized peritonitis (principal); F90.9 Attention-deficit hyperactivity disorder, unspecified type; F17.200 Nicotine dependence, unspecified, uncomplicated; Z79.899 Other long term (current) drug therapy

== ENCOUNTER 2020-02-01 03:52 | Inpatient (IN) ==
[2020-02-01] MEDS ORDERED: LACTATED RINGER'S 1,000 ML IV PRN (04:19)
[2020-02-01] MEDS ORDERED: OXYTOCIN 30 UNITS/500 ML BAG IV PRN ×2 (04:19→07:26)
[2020-02-01] MEDS ORDERED: ePHEDrine sulfate 50 MG/ML AMP ONE (04:43)
[2020-02-01] MEDS ORDERED: fentaNYL citrate 100 MCG/2 ML VIAL ONE (04:43)
[2020-02-01] MEDS ORDERED: BUPIVACAINE 0.25% 30 ML VIAL ONE (04:43)
[2020-02-01] MEDS ORDERED: fentaNYL 2MCG/ML ROPIV 1.25MG/ML 100 ML BAG EPI ONE (04:44)
--- NOTE | 2020-02-01 04:45 | Anesthesiology Consultation ---
Date of Service February 01, 2020 Assessment & Plan Chart Review Chart Review: Acceptable Risk for Labor Epidural Consults Requested none ASA ASA2 Proposed Anesthesia Anesthesia Type: Labor Epidural Risk / Benefits Reviewed With: PT / POA / Parent / Guardian, Accepts Plan and Informed Consent Obtained History Height/Weight Height: 5 ft 7 in Weight: 81.647 kg Allergies Allergy/AdvReac Type Severity Reaction Status Date / Time lactose Allergy Intermediate N/V/D Verified 01/24/20 08:53 atomoxetine AdvReac Mild IRRITABLE Verified 01/24/20 08:53 Medications Home Medications Medication Instructions Recorded Confirmed Last Taken acetone (urine) test #50 09/22/19 01/31/20 Unknown blood sugar diagnostic #120 09/22/19 01/31/20 Unknown blood-glucose meter #1 09/22/19 01/31/20 Unknown lancets #102 09/22/19 01/31/20 Unknown PNV cmb#95-ferrous fumarate-FA 1 tab PO DAILY 02/01/20 02/01/20 01/31/20 08:00 [] Active Medications Generic Name Dose Route Start Last Admin Trade Name Freq PRN Reason Stop Dose Admin Lactated Ringer's 1,000 mls @ 125 mls/hr 02/01/20 04:19 02/01/20 04:35 Lr IV 02/03/20 04:18 999 mls/hr .Q8H PRN Administration L&D Protocol Protocol NPO Date Last Intake of Fluids: 02/01/20 Time Last Intake of Fluids: 04:00 Date Last Intake of Solids: 01/31/20 Time Last Intake of Solids: 18:00 Past Medical History Medical History Acute appendicitis (Resolved) Anemia affecting Asthma Encounter for anatomic survey GDM (gestational diabetes mellitus) H/O H/O herpes zoster H/O varicella History of anemia Exercise / Class Metabolic Activity II 4-5 Yardwork/Stairs/Walk up hill Past Family History Family History Father Hepatitis C virus Brother Hypertension Sister Hypertension Grandmother Myocardial infarction Mother Clotting disorder Denies family history of Ovarian cancer Breast cancer Colorectal cancer Past Surgical History Surgical History (Reviewed 02/01/20 @ 04:42 by BRADLEY Epstein H/O section H/O wisdom tooth extraction History of tonsillectomy and adenoidectomy Hx of section (Resolved) S/P appendectomy Past Anesthesia History No Hx of Anesthesia Complications and No Family Hx of Anesthesia Complications History of PONV No Hx of PONV and No Hx of Motion Sickness Social History Smoking Status: Current every day smoker tobacco type: cigarettes Smoking cigarettes per day: 10 Do You Dip or Chew Tobacco: No Hx Alcohol Use: No Hx Substance Use: No Physical Exam Vital Signs Last Vital Signs Temp 36.5 C 02/01/20 04:25 Pulse 71 02/01/20 04:11 Resp 20 02/01/20 04:25 BP 133/81 02/01/20 04:11 ENMT Mouth: no TMJ abnormality Thyromental Distance: > or= 3.5 Finger Breadths Mallampati Class: II Neck normal visual inspection and trachea midline; neck extension not limited Respiratory normal respiratory effort Auscultation: lungs clear to auscultation bilaterally Cardiovascular Rate/Rhythm: regular rate and regular rhythm Heart Sounds: no murmur Musculoskeletal Spine: normal cervical ROM Extremities: full ROM of extremities Neurologic moves all extremities Psychiatric Orientation: alert and oriented x 3
[2020-02-01 04:47] LABS: Hematocrit (blood only) 39.3 % (37-47); Hemoglobin 13.6 g/dL (12.0-16.0); Mean Corpuscular Hemoglobin 32.5 pg (25-34); Mean Corpuscular Volume 93.8 fL (80-100); Mean Platelet Volume 12.8 fL (7.4-10.4); Platelet Count 263 K/uL (130-400); RDW Coefficient of Variation 13.4 % (11.5-14.5); RDW Standard Deviation 45.4 fL (36.4-46.3); Red Blood Count 4.19 M/uL (4.2-5.4); White Blood Count 17.58 K/uL (4.8-10.8)
[2020-02-01 04:48] LABS: Mean Corpuscular Hgb Conc 34.6 g/dL (32-36)
[2020-02-01] MEDS ORDERED: NALOXONE HCL 0.4 MG/1 ML VIAL/CARP IV PRN (05:01)
[2020-02-01] MEDS ORDERED: fentaNYL 2MCG/ML ROPIV 1.25MG/ML 100 ML BAG EPI PRN (05:01)
[2020-02-01] MEDS ORDERED: ONDANSETRON INJ 2 MG/ML 2 ML VIAL IV PRN (05:01)
[2020-02-01] MEDS ORDERED: ePHEDrine sulfate 50 MG/ML AMP IV PRN (05:01)
[2020-02-01] MEDS ORDERED: DiphenhydrAMINE HCL 50 MG/ML VIAL IV PRN (05:01)
[2020-02-01] MEDS ORDERED: NALOXONE HCL 1 MG in SODIUM CHLORIDE 0.9% 1000ML 1,000 ML IV PRN (05:01)
[2020-02-01] MEDS ORDERED: METOCLOPRAMIDE HCL 20 MG in SODIUM CHLORIDE 0.9% 50 ML IV PRN (05:01)
[2020-02-01] MEDS ORDERED: NALBUPHINE HCL INJ 10 MG/ML AMP IV PRN (05:01)
[2020-02-01] MEDS ORDERED: PROMETHAZINE HCL 25 MG in SODIUM CHLORIDE 0.9% 50 ML IV PRN (05:01)
--- NOTE | 2020-02-01 06:42 | History & Physical Report ---
Date of Service February 01, 2020 Assessment & Plan (1) Hx successful (vaginal after ), currently : 29yo at 39.4 weeks GA. TOLAC in active labor 1. Fetus: Cat 1 2. Labor: Active 3. Vitals: WNL 4. GDM: Will collect BG 5. consents reviewed and signed. (2) Diet controlled gestational diabetes mellitus (GDM), antepartum: (3) Previous delivery affecting , antepartum: (4) Supervision of normal intrauterine in multigravida: History of Present Illness Primary Care Provider: Terrell Burton MD 29yo at 39.4 weeks GA. Present in active labor. Denies LOF. Good FM. complicated by noncompliant gDM and prior and successful . Allergies Allergy/AdvReac Type Severity Reaction Status Date / Time lactose Allergy Intermediate N/V/D Verified 01/24/20 08:53 atomoxetine AdvReac Mild IRRITABLE Verified 01/24/20 08:53 Home Medications Home Medications Medication Instructions Recorded Confirmed Type acetone (urine) test #50 ea 09/22/19 01/31/20 Rx blood sugar diagnostic #120 ea 09/22/19 01/31/20 Rx blood-glucose meter #1 ea 09/22/19 01/31/20 Rx lancets #102 ea 09/22/19 01/31/20 Rx PNV cmb#95-ferrous fumarate-FA 1 tab PO DAILY 02/01/20 02/01/20 History [] Patient History Medical History Acute appendicitis (Resolved) Anemia affecting Asthma Encounter for anatomic survey GDM (gestational diabetes mellitus) H/O H/O herpes zoster H/O varicella History of anemia Surgical History H/O section H/O wisdom tooth extraction History of tonsillectomy and adenoidectomy Hx of section (Resolved) S/P appendectomy Family History Father Hepatitis C virus Brother Hypertension Sister Hypertension Grandmother Myocardial infarction Mother Clotting disorder Denies family history of Ovarian cancer Breast cancer Colorectal cancer Social History (Updated 09/18/19 @ 15:51 by Aline Lewis) Preferred Language: Greenlandic Communication Ability: Effective 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 Beliefs That Will Affect Care: None marital status: Single marital status details: Milo Schwartz JR [phone] Current Living Situation: Significant Other Current Living Situation Comment: lives with family, FOB, 2 dogs current occupational status: employed current occupation: [employer] of [place] [employer] Other Information That Helps Us Care for You: No Feels Safe at Home: Yes Safety Concerns: Feels Safe At This Time Smoking Status: Current every day smoker Tobacco Type: cigarettes ; packs per day: 0.5 ; Cigarettes Per Day: 10 ; Do You Dip or Chew Tobacco: No ; Second Hand Exposure: No ; Tobacco Cessation Education Requested by Patient: No Hx Alcohol Use: No Hx Substance Use: No Physical Exam Gastrointestinal (Abdomen): Inspection/Auscultation: abdomen normal to inspection Percussion/Palpation: abdomen soft; abdomen nontender, no guarding and abdomen not rigid Genitourinary: normal external appearance OB Exam Abdomen: + vertex Manual OB Exam: + cervical dilation 6 cm, + cervical effacement 80% and + station 0 OB Exam Monitor Tracing: + external FHT monitor used, + external uterine monitor used, + category I and + normal FHT variability; no early decelerations present, no late decelerations present and no variable decelerations Results & Data Vital Signs (Past 12 Hours) Vital Signs Temp Pulse Resp BP Pulse Ox 02/01/20 06:34 86 96 02/01/20 06:29 80 96 02/01/20 06:24 89 96 02/01/20 06:21 112 H 122/75 02/01/20 06:19 94 H 97 02/01/20 06:14 80 96 02/01/20 06:09 70 96 02/01/20 06:07 83 116/75 02/01/20 06:04 76 97 02/01/20 06:00 18 02/01/20 05:59 71 95 02/01/20 05:54 72 98 02/01/20 05:53 81 116/61 02/01/20 05:50 81 92 02/01/20 05:49 66 95 02/01/20 05:45 18 02/01/20 05:44 63 96 02/01/20 05:39 66 98 02/01/20 05:37 70 120/71 02/01/20 05:34 65 98 02/01/20 05:30 18 02/01/20 05:29 71 99 02/01/20 05:24 98 H 100 02/01/20 05:23 71 120/71 02/01/20 05:20 18 02/01/20 05:19 73 98 02/01/20 05:14 69 98 02/01/20 05:11 18 02/01/20 05:09 63 100 02/01/20 05:07 77 94 02/01/20 05:06 72 18 131/74 02/01/20 05:04 69 98 02/01/20 05:03 69 131/74 02/01/20 05:02 70 128/73 02/01/20 05:01 18 02/01/20 04:59 76 130/71 100 02/01/20 04:58 60 91 02/01/20 04:55 18 02/01/20 04:54 77 100 02/01/20 04:49 62 100 02/01/20 04:45 76 89 L 02/01/20 04:44 67 100 02/01/20 04:25 36.5 C 20 02/01/20 04:11 71 133/81 02/01/20 04:08 18 Coding Level of Care Code None Diagnoses Hx successful (vaginal after ), currently O34.219 Diet controlled gestational diabetes mellitus (GDM), antepartum O24.410 Previous delivery affecting , antepartum O34.219 Supervision of normal intrauterine in multigravida Z34.80
--- NOTE | 2020-02-01 06:53 | Labor Progress Brief Note ---
Date of Service February 01, 2020 Subjective Reason For Note: Routine Evaluation Assessment & Plan (1) Hx successful (vaginal after ), currently : 29yo at 39.4 weeks GA. TOLAC in active labor 1. Fetus: Cat 1 2. Labor: Active, Progressing 3. Vitals: WNL 4. GDM: Will collect BG 5. consents reviewed and signed. (2) Diet controlled gestational diabetes mellitus (GDM), antepartum: (3) Previous delivery affecting , antepartum: (4) Supervision of normal intrauterine in multigravida: Physical Exam Genitourinary: Manual OB Exam: + cervical dilation 9 cm, + cervical effacement 100%, + station + 1 and + amniotic fluid clear OB Exam Monitor Tracing: + external FHT monitor used, + external uterine monitor used, + category I and + normal FHT variability; no early decelerations present, no late decelerations present and no variable decelerations Results & Data Vital Signs (Past 12 Hours) Vital Signs Temp Pulse Resp BP Pulse Ox 02/01/20 06:49 88 97 02/01/20 06:44 115 H 96 02/01/20 06:39 109 H 117/73 97 02/01/20 06:36 72 123/74 02/01/20 06:34 86 96 02/01/20 06:29 80 96 02/01/20 06:24 89 96 02/01/20 06:21 112 H 122/75 02/01/20 06:19 94 H 97 02/01/20 06:14 80 96 02/01/20 06:09 70 96 02/01/20 06:07 83 116/75 02/01/20 06:04 76 97 02/01/20 06:00 18 02/01/20 05:59 71 95 02/01/20 05:54 72 98 02/01/20 05:53 81 116/61 02/01/20 05:50 81 92 02/01/20 05:49 66 95 02/01/20 05:45 18 02/01/20 05:44 63 96 02/01/20 05:39 66 98 02/01/20 05:37 70 120/71 02/01/20 05:34 65 98 02/01/20 05:30 18 02/01/20 05:29 71 99 02/01/20 05:24 98 H 100 02/01/20 05:23 71 120/71 02/01/20 05:20 18 02/01/20 05:19 73 98 02/01/20 05:14 69 98 02/01/20 05:11 18 02/01/20 05:09 63 100 02/01/20 05:07 77 94 02/01/20 05:06 72 18 131/74 02/01/20 05:04 69 98 02/01/20 05:03 69 131/74 02/01/20 05:02 70 128/73 02/01/20 05:01 18 02/01/20 04:59 76 130/71 100 02/01/20 04:58 60 91 02/01/20 04:55 18 02/01/20 04:54 77 100 02/01/20 04:49 62 100 02/01/20 04:45 76 89 L 02/01/20 04:44 67 100 02/01/20 04:25 36.5 C 20 02/01/20 04:11 71 133/81 02/01/20 04:08 18 Coding Level of Care Code None Diagnoses Hx successful (vaginal after ), currently O34.219 Diet controlled gestational diabetes mellitus (GDM), antepartum O24.410 Previous delivery affecting , antepartum O34.219 Supervision of normal intrauterine in multigravida Z34.80
[2020-02-01] MEDS ORDERED: bisacodyL 10 MG SUPP PR PRN (07:26)
[2020-02-01] MEDS ORDERED: HYDROCORTISONE ACETATE 25 MG SUPP PR PRN (07:26)
[2020-02-01] MEDS ORDERED: DIPHTHERIA/TETANUS/PERTUSSIS 0.5 ML SYR/VIAL IM ONE (07:26)
[2020-02-01] MEDS ORDERED: ACETAMINOPHEN 325 MG TAB PO PRN (07:26)
[2020-02-01] MEDS ORDERED: SUPERCREAM 0.870% 15 GM JAR EXT PRN (07:26)
[2020-02-01] MEDS: DOCUSATE SODIUM 100 MG CAP PO SCH ×2 (08:18→20:07)
[2020-02-01] MEDS: PRENATAL VITAMIN 1 TAB PO SCH (08:18)
[2020-02-01 09:17] LABS: Amphetamines+Metham, Urine Neg (Neg); Barbiturates, Urine Neg (Neg); Benzodiazepine, Urine Neg (Neg); Cocaine, Urine Neg (Neg); MDMA (Ecstacy), Urine Neg (Neg); Methadone, Urine Neg (Neg); Opiate, Urine Neg (Neg); Phencyclidine, Urine Neg (Neg)
--- NOTE | 2020-02-01 09:25 | Anesthesia Procedure Note ---
Date of Service February 01, 2020 Anesthesia Post Epidural Note Vital Signs Vital Signs: Temp Pulse Resp BP Pulse Ox 36.6 C 64 18 133/68 94 02/01/20 07:01 02/01/20 09:10 02/01/20 08:26 02/01/20 09:10 02/01/20 07:14 Notes Mental Status: alert / awake / arousable and participated in evaluation Nausea / Vomiting: adequately controlled Pain: adequately controlled Airway Patency, RR, SpO2: stable & adequate BP & HR: stable & adequate Hydration State: stable & adequate Neuraxial Anesthesia: was administered and sensory block is resolving Anesthetic Complications: no major complications apparent and Pt Satisfied with anesthetic care Epidural: Removed without complications and With tip intact
--- NOTE | 2020-02-01 09:37 | Operative Report (OR) ---
DATE OF OPERATION: 02/01/2020 PROCEDURE: Vaginal after section with second-degree perineal laceration repair. SURGEON: Rufino Quick MD POSTOPERATIVE DIAGNOSES: 1. Single intrauterine at 39 weeks 4 days gestational age. 2. History of prior and successful . 3. Desired a trial of labor. 4. Noncompliant gestational diabetic. 5. History of substance abuse. POSTOP DIAGNOSIS: Same status post delivery. ESTIMATED BLOOD LOSS: 300 mL DRAINS: Straight cath at the completion of the case. COMPLICATIONS: None. FINDINGS: Viable female with weight and Apgars pending. INDICATIONS: Deirdre is a 29-year-old G4, P2-0-1-2 admitted at 39 weeks 4 days gestational age in active labor, desiring trial of labor after . The patient had one prior vaginal delivery following her first section for her first . A consent was reviewed and signed with the patient. The patient labored without augmentation, received an epidural for anesthesia and progressed to complete-complete +2 station, at which time she felt the urge to push and pushed over approximately two contractions to achieve delivery. PROCEDURE: The patient progressed to 10 cm dilated, 100% effaced, +2 station, pushed over intact perineum with epidural anesthesia and delivered a viable infant with weight and Apgars as noted above. Head of the delivered in CARLTON position, rest into right transverse. No nuchal cord was noted. Body and shoulders quickly followed. was noted to be vigorous soon after delayed delivery. One-minute delayed cord clamping was initiated. The cord was then double clamped and cut. remained on maternal abdomen. Cord blood was obtained. Attention was then turned to deliver the placenta, delivered intact, 3-vessel cord, gentle cord traction. On inspection of vagina, perineum and cervix, there was noted to be a small second-degree perineal laceration which was repaired with 3-0 Vicryl in traditional crown stitch. Needle, sponge and instrument counts were correct at the completion of the case. Both mother and were stable in immediate post-delivery period. I attest to the content of the Intraoperative Record and any orders documented therein. Any exception s are noted below.
[2020-02-01] MEDS: IBUPROFEN 600 MG TAB PO PRN ×2 (10:59→20:08)
[2020-02-01] MEDS: BENZOCAINE 20% AER SPR 82.5 GM CAN EXT PRN (11:00)
[2020-02-02 06:11] LABS: Hematocrit (blood only) 32.8 % (37-47); Hemoglobin 11.1 g/dL (12.0-16.0)
--- NOTE | 2020-02-02 06:50 | Obstetrical Progress Note ---
Date of Service February 02, 2020 Assessment & Plan (1) Hx successful (vaginal after ), currently : - doing well - routine care Subjective Ambulation: ambulating normally Voiding: no voiding problems Physical Exam Constitutional WD/WN, vitals as above Gastrointestinal (Abdomen) Fundus firm below umbilicus Musculoskeletal No deep calf tenderness Results & Data Vital Signs (Past 12 Hours) Vital Signs Temp Pulse Resp BP Pulse Ox 02/02/20 03:40 98.4 F 86 18 127/79 97 02/01/20 23:40 98.1 F 80 18 115/74 98 02/01/20 19:05 98.4 F 77 18 114/75 98
[2020-02-02] MEDS: DOCUSATE SODIUM 100 MG CAP PO SCH ×2 (08:48→21:57)
[2020-02-02] MEDS: PRENATAL VITAMIN 1 TAB PO SCH (08:49)
[2020-02-02] MEDS: IBUPROFEN 600 MG TAB PO PRN (08:49)
[2020-02-02] MEDS ORDERED: bisacodyL 5 MG TABEC PO SCH (20:00)
[2020-02-02 23:53] LABS: Marijuana Quant, GCMS Urine 23 ng/mL (<5)
--- NOTE | 2020-02-03 06:28 | Obstetrical Progress Note ---
Date of Service February 03, 2020 Assessment & Plan (1) , delivered: Doing well. Plan d/c home. Instructions reviewed. CYS has been notified of positive drug screen. Day #:: 2 Subjective Ambulation: ambulating normally Voiding: no voiding problems Passing Gas:: Yes Diet Tolerance:: regular diet Lochia:: Small Feeding Type:: bottle feeding Physical Exam Constitutional WD/WN, vitals as above Cardiovascular Extremities: no calf tenderness and no edema Gastrointestinal (Abdomen) soft, nt, nd ff/nt at u Psychiatric A+Ox3, euthymic affect Results & Data Vital Signs (Past 12 Hours) Vital Signs Temp Pulse Resp BP Pulse Ox 02/02/20 23:35 37.4 C 86 16 129/81 96
[2020-02-03] MEDS: IBUPROFEN 600 MG TAB PO PRN (07:40)
[2020-02-03] MEDS: DOCUSATE SODIUM 100 MG CAP PO SCH (07:40)
[2020-02-03] MEDS: PRENATAL VITAMIN 1 TAB PO SCH (07:40)
[2020-02-03] MEDS: BENZOCAINE 20% AER SPR 82.5 GM CAN EXT PRN (11:41)
== END 2020-02-03 12:16 | disposition home or self-care (01) | DRG 806 ==
LOC: OPB 03:52 → 4S1 03:59 → 4N 10:33

== ENCOUNTER 2021-02-02 06:33 | Inpatient (IN) ==
[2021-02-02] MEDS ORDERED: LIDO/EPINEPHRINE/SOD BICARB 20 ML VIAL ONE (06:36)
[2021-02-02] MEDS ORDERED: OXYTOCIN 10 UNITS/ML VIAL ONE (06:53)
[2021-02-02] MEDS ORDERED: OXYTOCIN 30 UNITS/500ML NSS ONE (06:55)
[2021-02-02] MEDS ORDERED: bisacodyL 10 MG SUPP PR PRN (07:00)
[2021-02-02] MEDS ORDERED: HYDROCORTISONE ACETATE 25 MG SUPP PR PRN (07:00)
[2021-02-02] MEDS ORDERED: DIPHTHERIA/TETANUS/PERTUSSIS 0.5 ML SYR/VIAL IM ONE (07:00)
[2021-02-02] MEDS ORDERED: ACETAMINOPHEN 325 MG TAB PO PRN (07:00)
[2021-02-02] MEDS ORDERED: OXYTOCIN 30 UNITS/500 ML BAG IV PRN ×2 (07:00)
[2021-02-02] MEDS ORDERED: BENZOCAINE 20% AER SPR 82.5 GM CAN EXT PRN (07:00)
[2021-02-02] MEDS ORDERED: OXYTOCIN 10 UNITS/ML VIAL IM ONE (07:00)
[2021-02-02] MEDS ORDERED: SUPERCREAM 0.870% 15 GM JAR EXT PRN (07:00)
--- NOTE | 2021-02-02 07:04 | Emergency Department Note ---
Impression & Plan Spontaneous vaginal delivery ED Provider Note NAME: JOCY BREWSTER AGE: 30 SEX: F ARRIVES VIA: Walk-In INFORMANT: Patient ED PROVIDER(S): Elba Long DO CHIEF COMPLAINT: Childbirth PLAN: Disposition: To labor and delivery Condition: Good MEDICAL DECISION MAKING: This is a 30-year-old female patient who presented to the emergency department this morning in labor and delivered her fourth child in the car in front of the emergency department with the assistance of a nurse. She was then placed in a wheelchair and brought back to room A1. I was able to clamp and cut the cord. The baby girl was cared for. Labor and delivery nurses and freight manager arrived at the bedside. The freight manager was able to assume care of this patient for repair of the perineum and delivery of the placenta. Triage Nursing notes reviewed and agree them. Additional history obtained from the grandmother who was at the bedside Vital Signs: reviewed and unremarkable Consultation(s): Dr. Kc HPI: arrives for evaluation of child . The patient explains that this is her fourth child and it was precipitous. She went into labor and drove here to the emergency department. Upon arrival, she began to deliver baby in the car. They summoned the help of a an ED nurse who was able to assist in the delivery. ROS: The patient describes a normal PAST MEDICAL HISTORY:See Below PAST SURGICAL HISTORY:See Below FAMILY HISTORY:See Below SOCIAL HISTORY:See Below HOME MEDICATIONS:See Below ALLERGIES:See Below VITALS:See Below PHYSICAL EXAMINATION: Neck: Supple; Heart: Regular rate and rhythm. There is a normal S1 and S2 with no murmurs, clicks, or gallops appreciated. Lungs: Clear to auscultation bilaterally with no wheezes, rales, or rhonchi. Abdomen: Distended. There is no guarding, rigidity, or rebound noted. Extremities: No evidence of cyanosis, clubbing, or edema. There are easily palpable peripheral pulses. Skin: Extremely pale and diaphoretic ED COURSE: I met the patient in the in room 1 in a wheelchair. The mother handed the to me with the umbilical cord still attached to the mother and to the . We moved the mother to the bed and I wrapped the and warm blankets. The 's was 10 upon my initial evaluation. I kept the in line with the mother's vagina or below the vagina and clamped the cord with sterile hemostats and cut it with sterile scissors. Nursing staff established IV access on the mother and performed uterine massage. We applied a cap to the 's head. OB nursing staff and the freight manager arrived at the bedside. I handed off the . The freight manager assumed care of the mother. Elba Long DO Past Med/Surg History Medical History (Updated 02/02/21 @ 07:11 by Elba Long DO) Acute appendicitis Anemia affecting Asthma Encounter for anatomic survey GDM (gestational diabetes mellitus) H/O H/O herpes zoster H/O varicella History of anemia Surgical History H/O section H/O wisdom tooth extraction History of tonsillectomy and adenoidectomy Hx of section S/P appendectomy Family History (Updated 09/11/20 @ 12:11 by Brianne Langford MD) Father Hepatitis C virus Brother Hypertension Sister Hypertension Grandmother Myocardial infarction Mother Clotting disorder Polycythemia vera Denies family history of Ovarian cancer Breast cancer Colorectal cancer Social History Smoking Status: Current every day smoker Tobacco Type: Cigarettes packs per day: 0.5; Cigarettes Per Day: 5; Second Hand Exposure: No; Hx Alcohol Use: No Hx Substance Use: No Preferred Language: Gabonese Communication Ability: Effective Toolroom Attendant Required: No Beliefs That Will Affect Care: None marital status: Single marital status details: Milo Schwartz JR (39) [phone] Current Living Situation: Significant Other Current Living Situation Comment: lives with family, FOB, 2 dogs current occupational status: employed current occupation: [employer] Feels Safe at Home: Yes Assistive Devices: None Allergies Allergies Allergy/AdvReac Type Severity Reaction Status Date / Time atomoxetine AdvReac Mild IRRITABLE Verified 01/30/21 10:37 Home Meds Home Medications Medication Instructions Recorded Confirmed PNV cmb#95-ferrous fumarate-FA 1 tab PO QAM 02/01/20 01/30/21 [] dextroamphetamine-amphetamine 15 15 mg PO PM tab 03/14/20 01/30/21 mg tablet dextroamphetamine-amphetamine 30 30 mg PO QAM tab 03/14/20 01/30/21 mg tablet medical marijuana PO 09/11/20 01/30/21 Results & Data (ED) Vital Signs Vital Signs - 24 hr 02/02/21 06:38 Temperature 36.5 C Temperature Source Oral Pulse Rate 68 Respiratory Rate 24 Respiratory Effort / Characteristics Non-Labored Spontaneous Respiratory Depth Normal Pulse Oximetry 100 Oxygen Delivery Method Room Air Sepsis New/Unexplained Change in Mental Status N/A Sepsis Action Taken by Nursing No Action Required Administered Medications Discontinued Medications Lidocaine/Epinephrine (Lido/Epinephrine/Sod Bicarb 20 Ml Vial) Confirm Administered Dose 20 ml .ROUTE .STK-MED ONE Stop: 02/02/21 06:37 Last Admin: 02/02/21 06:40 Dose: 20 ml Documented by: [id number] Oxytocin (Oxytocin 10 Units/Ml Vial) Confirm Administered Dose 10 units .ROUTE .STK-MED ONE Stop: 02/02/21 06:54 Last Admin: 02/02/21 07:02 Dose: 10 units Documented by: [id number] Oxytocin (Oxytocin 30 Units/500ml Nss) Confirm Administered Dose 30 units .ROUTE .STK-MED ONE Stop: 02/02/21 06:56 Last Admin: 02/02/21 07:02 Dose: 30 units Documented by: [id number] Discharge Plan Visit Data Chief Complaint: Vaginal Bleeding Stated Complaint: BABY ED Provider: Elba Long Discharge Problem: Spontaneous vaginal delivery Discharge Instructions Interventions: ED Discharge Assessment Last Done: 02/02/21 06:49
--- NOTE | 2021-02-02 07:07 | History & Physical Report ---
Date of Service February 02, 2021 Assessment & Plan (1) with 39 completed weeks gestation: (2) , delivered: Admission and Anticipated Discharge Date Admission Date: February 02, 2021 When I arrived in the ED, IV access was being established. The cord was coming from the vagina and had a clamp on it. I delivered the placenta with one push c/d/i. Baby delivered 0630 and placenta at 0634. Uterine massage done with IM pitocin given. A small second degree laceration was identified. It was infiltrated with lidocaine with epi and repaired in the normal standard fashion. Hemostasis was good. ebl from what I witnessed was 100cc. The placenta is a hold. The patient was transferred to labor and delivery for PP monitoring. She was in stable condition. Patient notes that her mucous plug fell out about ?0430 and she started to contract. She noted that she was constantly peeing herself after that. She admits to recent MJ and Adderall use "I am trying to wean the adderall". Will check urine drug tox. SS consult. History of Present Illness Chief Complaint: delivered in ED Primary Care Provider: Terrell Burton MD Patient is a 30yowf with iup at 39 1/7 weeks who presents to the Ed and upon exiting car, delivered her baby. Patient called me at 5:48am. AT that time notes she lost her mucous plug, denies lof, had a little vb. Noted contractions q5min. I advised the patient to come into the hospital at that time. Her has been complicated by GDM with poor compliance to treatment--never saw dieticien, never checked sugars. Was treated as uncontrolled. Hx of gdm in prior . Hx of c/s in first for nrfht, two successful . Use of medical marajuana (for depression), tobacco and adderall. Notes she has recently smoke MJ. Late presentation to car about about 18 weeks, dating by second trimester ultrasound. labs--A+/ab-/ri/rprnr/hiv-/hepb-/gc/ct-/declined genetics/cf/sma/afp. Allergies Allergy/AdvReac Type Severity Reaction Status Date / Time atomoxetine AdvReac Mild IRRITABLE Verified 01/30/21 10:37 Home Medications Medication Instructions Recorded Confirmed Type PNV cmb#95-ferrous fumarate-FA 1 tab PO QAM 02/01/20 01/30/21 History [] dextroamphetamine-amphetamine 15 15 mg PO PM tab 03/14/20 01/30/21 History mg tablet dextroamphetamine-amphetamine 30 30 mg PO QAM tab 03/14/20 01/30/21 History mg tablet medical marijuana PO 09/11/20 01/30/21 History Patient History Medical History (Updated 02/02/21 @ 07:16 by Karina Kc MD, FACOG) Acute appendicitis Anemia affecting Asthma Encounter for anatomic survey GDM (gestational diabetes mellitus) H/O H/O herpes zoster H/O varicella History of anemia Surgical History H/O section H/O wisdom tooth extraction History of tonsillectomy and adenoidectomy Hx of section S/P appendectomy Family History Father Hepatitis C virus Brother Hypertension Sister Hypertension Grandmother Myocardial infarction Mother Clotting disorder Polycythemia vera Denies family history of Ovarian cancer Breast cancer Colorectal cancer Social History Smoking Status: Current every day smoker Tobacco Type: Cigarettes packs per day: 0.5; Cigarettes Per Day: 5; Second Hand Exposure: No; Hx Alcohol Use: No Hx Substance Use: No Preferred Language: Moldovan Communication Ability: Effective 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 Stamping Required: No Beliefs That Will Affect Care: None marital status: Single marital status details: Milo Schwartz JR (39) [phone] Current Living Situation: Significant Other Current Living Situation Comment: lives with family, FOB, 2 dogs current occupational status: employed current occupation: [employer] Feels Safe at Home: Yes Assistive Devices: None OB History G1--06/06--c/s, 41weeks, 7#7oz, nuchal cord, nrfht G2--09/07--, 6#13, gdm G3--03/15--8 week elective ab G4--02/13--6#7, , 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 Some moderate bleeding noted in the bed. Results & Data ([facility]) Vital Signs (Past 12 Hours) Vital Signs Temp Pulse Resp Pulse Ox 02/02/21 06:38 36.5 C 68 24 100 Code Status & VTE Plan VTE Prophylaxis Plan VTE Prophylaxis will be ordered: No Coding Level of Care Code None Diagnoses with 39 completed weeks gestation Z3A.39 , delivered O34.219
[2021-02-02] MEDS ORDERED: IBUPROFEN 600 MG TAB PO ONE (07:14)
[2021-02-02 07:37] LABS: Hematocrit (blood only) 37.1 % (37-47); Hemoglobin 12.5 g/dL (12.0-16.0); Mean Corpuscular Hemoglobin 31.6 pg (25-34); Mean Corpuscular Hgb Conc 33.7 g/dL (32-36); Mean Corpuscular Volume 93.7 fL (80-100); Mean Platelet Volume 13.1 fL (7.4-10.4); Platelet Count 216 K/uL (130-400); RDW Coefficient of Variation 14.3 % (11.5-14.5); Red Blood Count 3.96 M/uL (4.2-5.4); White Blood Count 14.16 K/uL (4.8-10.8)
[2021-02-02] MEDS: DOCUSATE SODIUM 100 MG CAP PO SCH ×2 (10:10→20:28)
[2021-02-02] MEDS: PRENATAL VITAMIN 1 TAB PO SCH (10:10)
[2021-02-02 11:08] LABS: Amphetamines+Metham, Urine Neg (Neg); Barbiturates, Urine Neg (Neg); Benzodiazepine, Urine Neg (Neg); Cocaine, Urine Neg (Neg); MDMA (Ecstacy), Urine Neg (Neg); Methadone, Urine Neg (Neg); Opiate, Urine Neg (Neg); Phencyclidine, Urine Neg (Neg)
[2021-02-02] MEDS: IBUPROFEN 600 MG TAB PO PRN ×2 (15:18→20:27)
[2021-02-03] MEDS: IBUPROFEN 600 MG TAB PO PRN ×4 (03:57→20:26)
--- NOTE | 2021-02-03 06:36 | Obstetrical Progress Note ---
Date of Service February 03, 2021 Assessment & Plan (1) , delivered: Doing well. Tox positive for MJ only which she has admitted to for treatment of her depression. Continue routine care. Has ss consult and cys visiting today. Day #:: 1 Subjective Ambulation: ambulating normally Voiding: no voiding problems Passing Gas:: Yes Diet Tolerance:: regular diet Lochia:: Small Feeding Type:: bottle feeding cramping improved. Physical Exam Constitutional WD/WN, vitals as above Cardiovascular Extremities: no calf tenderness and no edema Gastrointestinal (Abdomen) soft, nt, nd, ff/nt at u Psychiatric A+Ox3, euthymic affect Results & Data ([facility]) Vital Signs (Past 12 Hours) Vital Signs Temp Pulse Resp BP Pulse Ox 02/03/21 04:00 36.6 C 82 16 134/81 98 02/02/21 23:20 36.6 C 84 17 133/86 98 02/02/21 20:00 36.7 C 85 16 143/84 H 98
[2021-02-03] MEDS: PRENATAL VITAMIN 1 TAB PO SCH (08:33)
[2021-02-03] MEDS: DOCUSATE SODIUM 100 MG CAP PO SCH ×2 (08:33→20:27)
[2021-02-03] MEDS ORDERED: bisacodyL 5 MG TABEC PO SCH (20:00)
[2021-02-04] MEDS: IBUPROFEN 600 MG TAB PO PRN ×2 (05:11→11:35)
--- NOTE | 2021-02-04 06:10 | Obstetrical Progress Note ---
Date of Service <Moris Aquino MD - Last Filed: 02/04/21 07:45> February 04, 2021 Assessment & Plan <Moris Aquino MD - Last Filed: 02/04/21 07:45> (1) , delivered: PPD #2 Doing well. Ambulating well, voiding well. Awaiting meeting with CYS later today. Continue routine post- care. To have follow-up in [address] Kc Subjective <Moris Aquion MD - Last Filed: 02/04/21 07:45> Deirdre is a 30y/o PPD#2 s/p at 39+ weeks. Doing well this morning, feeling well with no current concerns. Ambulating around room without complication, tolerating oral intake, voiding normally, have small amount of lochia. Bottle feeding has improved. Physical Exam <Moris Aquino MD - Last Filed: 02/04/21 07:45> HEENT: conjunctive pink, sclera anicteric, mask on due to current pandemic Heart: regular rate, no appreciable murmur/gallop/rub Lungs: Clear to auscultation, no wheezes, rhonchi, or areas of decreased breath sounds Abdomen: uterine fundus firm, non-tender, 2cm below umbilicus Extremities: no cyanosis, edema, clubbing; nail beds pink Results & Data ([facility]) <Moris Aquino MD - Last Filed: 02/04/21 07:45> Vital Signs (Past 12 Hours) Vital Signs Temp Pulse Resp BP 02/04/21 01:54 36.4 C L 83 16 125/77 02/03/21 20:15 36.8 C 86 18 126/81 Medications Administered Current Inpatient Medications Acetaminophen (Acetaminophen 325 Mg Tab) 650 mg PO Q6H PRN PRN Reason: Pain/AGUSTIN/Fever Stop: 03/04/21 06:59 Benzocaine (Benzocaine 20% Aer Spr 82.5 Gm Can) 1 appln EXT PRN PRN PRN Reason: Perineal Discomfort Stop: 03/04/21 06:59 Last Admin: 02/02/21 10:11 Dose: 1 appln Documented by: Bisacodyl (Bisacodyl 10 Mg Supp) 10 mg WI DAILY PRN PRN Reason: No BM on 2nd post- day Stop: 03/04/21 06:59 Cocaine HCl (Supercream 0.870% 15 Gm Jar) 1 gm EXT BID PRN PRN Reason: Hemorrhoidal Inflammation Stop: 02/16/21 06:59 Docusate Sodium (Docusate Sodium 100 Mg Cap) 100 mg PO DAILY@ [facility] Stop: 03/04/21 07:59 Last Admin: 02/03/21 20:27 Dose: Not Given Documented by: Hydrocortisone (Hydrocortisone Acetate 25 Mg Supp) 25 mg WI BID PRN PRN Reason: Hemorrhoidal Inflammation Stop: 03/04/21 06:59 Oxytocin (Pitocin) 30 units in 500 mls @ 333.333 mls/hr IV .Q1H30M PRN; Protocol PRN Reason: Bleeding Control Stop: 03/04/21 06:59 Last Titration: 02/02/21 10:43 Dose: Infused Documented by: Ibuprofen (Ibuprofen 600 Mg Tab) 600 mg PO Q4H PRN PRN Reason: Pain/AGUSTIN/Cramping/Fever Stop: 03/04/21 06:59 Last Admin: 02/04/21 05:11 Dose: 600 mg Documented by: Prenat Multivit/[place]/Iron/Folic Ac ( Vitamin 1 Tab) 1 tab PO DAILY@ [facility] Stop: 03/04/21 07:59 Last Admin: 02/03/21 08:33 Dose: 1 tab Documented by: <Nunu Sawyer DO - Last Filed: 02/04/21 09:24> Co-Signing Physician Notes Resident Physician Supervision Note: I was present with Dr. Aquino during the history and exam. I discussed the case with the resident and agree with the findings and plan as documented in the note. Any exceptions or clarifications are listed here: PPD#2, doing well. DC home pending CYS visit. Documented By: Nunu Sawyer DO Resident Activity Tracking <Moris Aquino MD - Last Filed: 02/04/21 07:45> Resident Involvement: Resident Care Provided Care Provided: OB Delivery
[2021-02-04] MEDS: PRENATAL VITAMIN 1 TAB PO SCH (07:54)
[2021-02-04] MEDS: DOCUSATE SODIUM 100 MG CAP PO SCH (07:54)
[2021-02-04 22:55] LABS: Marijuana Quant, GCMS Urine 540 ng/mL (<5)
--- NOTE | 2021-02-05 17:18 | Discharge Summary ---
Date of Service February 05, 2021 Admission HPI Per Admitting Provider Patient is a 30yowf with iup at 39 1/7 weeks who presents to the Ed and upon exiting car, delivered her baby. Patient called me at 5:48am. AT that time notes she lost her mucous plug, denies lof, had a little vb. Noted contractions q5min. I advised the patient to come into the hospital at that time. Her has been complicated by GDM with poor compliance to treatment--never saw dieticien, never checked sugars. Was treated as uncontrolled. Hx of gdm in prior . Hx of c/s in first for nrfht, two successful . Use of medical marajuana (for depression), tobacco and adderall. Notes she has recently smoke MJ. Late presentation to car about about 18 weeks, dating by second trimester ultrasound. labs--A+/ab-/ri/rprnr/hiv-/hepb-/gc/ct-/declined genetics/cf/sma/afp. Admission Exam (Per Admitting) Constitutional WD/WN, vitals as above Cardiovascular Extremities: no calf tenderness and no edema Psychiatric A+Ox3, euthymic affect Hospital Course (1) , delivered: Delivered placenta in ED. Transferred to . Did well. +juan screen for MJ. Had CYS and SS in hospital. d/c home. f/u 6 weeks. Coding Level of Care Code None Diagnoses , delivered O34.219
== END 2021-02-04 14:10 | disposition home or self-care (01) | DRG 806 ==
LOC: ED 06:33 → 4S1 06:34 → 4S2 10:40